=== PATIENT | female | born 1940 | race Two or more races ===

== ENCOUNTER → 2020-08-04 15:56 | Outpatient (BNVA) | payer MEDICARE, MEDICAID, SELFPAY | PROVIDERS: PCP Internal Medicine; Visit Provider Anesthesiology | DX: M47.816 Spondylosis without myelopathy or radiculopathy, lumbar region (principal); M25.50 Pain in unspecified joint; M17.0 Bilateral primary osteoarthritis of knee | CPT/HCPCS: 99213 ==

== ENCOUNTER 2020-08-05 08:10 | Outpatient (REF) | payer MEDICARE, MEDICAID, SELFPAY ==
--- NOTE | 2020-08-05 14:03 | FL_ITS ---
EXAMINATION: XR FLUOROSCOPY WITH IMAGES CLINICAL INFORMATION: M17.0 - Bilateral primary osteoarthritis of knee COMPARISON: None. TECHNIQUE: Fluoroscopy performed by Ilana Miles NP. Fluoroscopy time: 0.4 minutes DAP: 2.41 Gycm2 Images: 2 FINDINGS: There are 2 needles overlying mid aspect distal femur and single needle overlying mid aspect proximal tibia. There are degenerative changes knee joint and atherosclerotic calcifications vasculature. FL/FL guidance in treatment room IMPRESSION: Fluoroscopy for pain management procedure.
== END 2020-08-05 08:11 | disposition home or self-care (01) ==
LOC: HO.RADIR 08:10
PROVIDERS: Visit Provider Anesthesiology
DX: M17.0 Bilateral primary osteoarthritis of knee (principal)
CPT/HCPCS: 64454

== ENCOUNTER 2020-08-19 05:11 | Outpatient (REF) | payer MEDICARE, MEDICAID, SELFPAY ==
--- NOTE | 2020-08-19 13:08 | FL_ITS ---
EXAMINATION: XR FLUOROSCOPY WITH IMAGES CLINICAL INFORMATION: Spondylosis without myelopathy or radiculopathy COMPARISON: Prior procedure 08/05/2020 TECHNIQUE: Fluoroscopy performed by DESEAN Miles. Fluoroscopy time: 0.8 minutes DAP: 3.7 Gycm2 Images: 6 FINDINGS: Multiple intraoperative fluoroscopic spot radiographs demonstrate positioning of needles and injection of contrast along the neuroforamina at L4-5 and L5-S1 bilaterally. FL/FL guidance in treatment room IMPRESSION: Intraoperative fluoroscopic guidance as described above.
== END 2020-08-19 05:12 | disposition home or self-care (01) ==
LOC: HO.RADIR 05:11
PROVIDERS: Visit Provider Anesthesiology
DX: M17.0 Bilateral primary osteoarthritis of knee (principal); M47.816 Spondylosis without myelopathy or radiculopathy, lumbar region; G89.4 Chronic pain syndrome
CPT/HCPCS: 64454; J1200; J3300; Q9967

== ENCOUNTER → 2020-09-15 13:08 | Outpatient (BNVA) | payer MEDICARE, MEDICAID, SELFPAY | PROVIDERS: PCP Internal Medicine; Visit Provider Anesthesiology | DX: G89.4 Chronic pain syndrome (principal); M17.0 Bilateral primary osteoarthritis of knee; M47.816 Spondylosis without myelopathy or radiculopathy, lumbar region | CPT/HCPCS: 99212 ==

== ENCOUNTER → 2020-09-29 13:32 | Outpatient (BNVA) | payer MEDICARE, SELFPAY | PROVIDERS: PCP Internal Medicine; Visit Provider Anesthesiology | DX: M17.0 Bilateral primary osteoarthritis of knee (principal); G89.4 Chronic pain syndrome; M47.816 Spondylosis without myelopathy or radiculopathy, lumbar region | CPT/HCPCS: Q3014 ==

== ENCOUNTER → 2020-10-16 14:34 | Outpatient (BNVA) | payer MEDICARE, MEDICAID, SELFPAY | PROVIDERS: PCP Internal Medicine; Visit Provider Anesthesiology | DX: M47.816 Spondylosis without myelopathy or radiculopathy, lumbar region (principal); M17.0 Bilateral primary osteoarthritis of knee; G89.4 Chronic pain syndrome | CPT/HCPCS: 99212 ==

== ENCOUNTER → 2020-11-13 10:23 | Outpatient (BNVA) | payer MEDICARE, MEDICAID, SELFPAY | PROVIDERS: PCP Internal Medicine; Visit Provider Anesthesiology | DX: G89.4 Chronic pain syndrome (principal); N17.0 Acute kidney failure with tubular necrosis; M47.816 Spondylosis without myelopathy or radiculopathy, lumbar region; Z79.891 Long term (current) use of opiate analgesic | CPT/HCPCS: 99212 ==

== ENCOUNTER → 2020-12-11 15:50 | Outpatient (BNVA) | payer MEDICARE, MEDICAID, SELFPAY | PROVIDERS: PCP Internal Medicine; Visit Provider Anesthesiology | DX: M17.0 Bilateral primary osteoarthritis of knee (principal); M47.816 Spondylosis without myelopathy or radiculopathy, lumbar region; G89.4 Chronic pain syndrome; Z79.891 Long term (current) use of opiate analgesic | CPT/HCPCS: 99212 ==

== ENCOUNTER → 2021-02-05 10:43 | Outpatient (BNVA) | payer MEDICARE, MEDICAID, SELFPAY | PROVIDERS: PCP Internal Medicine; Visit Provider Anesthesiology | DX: M17.0 Bilateral primary osteoarthritis of knee (principal); G89.4 Chronic pain syndrome; M47.816 Spondylosis without myelopathy or radiculopathy, lumbar region | CPT/HCPCS: 99212 ==

== ENCOUNTER → 2021-03-04 10:35 | Outpatient (BNVA) | payer MEDICARE, MEDICAID, SELFPAY | PROVIDERS: PCP Internal Medicine; Visit Provider Nurse Practitioner Family | DX: M17.0 Bilateral primary osteoarthritis of knee (principal); M47.816 Spondylosis without myelopathy or radiculopathy, lumbar region; G89.4 Chronic pain syndrome | CPT/HCPCS: 99212 ==

== ENCOUNTER → 2021-04-01 08:19 | Outpatient (BNVA) | payer MEDICARE, MEDICAID, SELFPAY | PROVIDERS: PCP Internal Medicine; Visit Provider Nurse Practitioner Family | DX: M17.0 Bilateral primary osteoarthritis of knee (principal); M47.816 Spondylosis without myelopathy or radiculopathy, lumbar region; G89.4 Chronic pain syndrome | CPT/HCPCS: 99212 ==

== ENCOUNTER → 2021-05-13 10:34 | Outpatient (BNVA) | payer OTHER, SELFPAY | PROVIDERS: PCP Internal Medicine; Visit Provider Anesthesiology | DX: M17.0 Bilateral primary osteoarthritis of knee (principal); M47.816 Spondylosis without myelopathy or radiculopathy, lumbar region; G89.4 Chronic pain syndrome | CPT/HCPCS: 99212 ==

== ENCOUNTER 2021-06-02 07:45 | Outpatient (REF) | payer MEDICARE, MEDICAID, SELFPAY ==
--- NOTE | ~2021-06-02 | FL_ITS ---
EXAMINATION: XR FLUOROSCOPY WITH IMAGES CLINICAL INFORMATION: M17.0 - Bilateral primary osteoarthritis of knee COMPARISON: Fluoroscopy with images 08/05/2020 TECHNIQUE: Fluoroscopy performed by Ilana Miles NP. Fluoroscopy time: 0.2 minutes DAP: 1.57 Gycm2 Images: 2 FINDINGS: There are prominent osteophytic changes right knee greater lateral compartment with joint narrowing and subchondral sclerosis and osteophytes. Limestone/electrodes are seen overlying the medial and lateral side distal femur mid depth and also at the medial side proximal tibia mid depth. FL/FL guidance in treatment room IMPRESSION: Fluoroscopy for pain management procedure.
== END 2021-06-02 07:46 | disposition home or self-care (01) ==
LOC: HO.RADIR 07:45
PROVIDERS: Visit Provider Anesthesiology
DX: M17.0 Bilateral primary osteoarthritis of knee (principal); M47.816 Spondylosis without myelopathy or radiculopathy, lumbar region; G89.4 Chronic pain syndrome
CPT/HCPCS: 64624; J3300

== ENCOUNTER → 2021-06-10 10:47 | Outpatient (BNVA) | payer OTHER, SELFPAY | PROVIDERS: Visit Provider Anesthesiology | DX: M17.0 Bilateral primary osteoarthritis of knee (principal); M47.816 Spondylosis without myelopathy or radiculopathy, lumbar region; G89.4 Chronic pain syndrome; Z79.899 Other long term (current) drug therapy | CPT/HCPCS: 99212 ==

== ENCOUNTER → 2021-07-08 10:10 | Outpatient (BNVA) | payer MEDICARE, MEDICAID, SELFPAY | PROVIDERS: Visit Provider Anesthesiology | DX: Z51.81 Encounter for therapeutic drug level monitoring (principal); M17.0 Bilateral primary osteoarthritis of knee; M47.816 Spondylosis without myelopathy or radiculopathy, lumbar region; G89.4 Chronic pain syndrome | CPT/HCPCS: 99212 ==

== ENCOUNTER → 2021-08-05 13:39 | Outpatient (BNVA) | payer MEDICARE, SELFPAY | PROVIDERS: Visit Provider Anesthesiology | DX: Z51.81 Encounter for therapeutic drug level monitoring (principal); M17.0 Bilateral primary osteoarthritis of knee; M47.816 Spondylosis without myelopathy or radiculopathy, lumbar region; G89.4 Chronic pain syndrome | CPT/HCPCS: 99212 ==

== ENCOUNTER → 2021-08-31 11:41 | Outpatient (BNVA) | payer MEDICARE, MEDICAID, SELFPAY | PROVIDERS: Visit Provider Anesthesiology | DX: Z51.81 Encounter for therapeutic drug level monitoring (principal); M17.0 Bilateral primary osteoarthritis of knee; M47.816 Spondylosis without myelopathy or radiculopathy, lumbar region; G89.4 Chronic pain syndrome | CPT/HCPCS: 99212 ==

== ENCOUNTER → 2021-10-07 10:12 | Outpatient (BNVA) | payer MEDICARE, MEDICAID, SELFPAY | PROVIDERS: PCP Internal Medicine; Visit Provider Anesthesiology | DX: Z51.81 Encounter for therapeutic drug level monitoring (principal); F11.20 Opioid dependence, uncomplicated; M17.0 Bilateral primary osteoarthritis of knee; M47.816 Spondylosis without myelopathy or radiculopathy, lumbar region; G89.4 Chronic pain syndrome | CPT/HCPCS: 99212 ==

== ENCOUNTER → 2021-11-11 10:10 | Outpatient (BNVA) | payer MEDICARE, MEDICAID, SELFPAY | PROVIDERS: PCP Internal Medicine; Visit Provider Anesthesiology | DX: Z51.81 Encounter for therapeutic drug level monitoring (principal); F11.20 Opioid dependence, uncomplicated | CPT/HCPCS: 99212 ==

== ENCOUNTER → 2021-12-09 13:23 | Outpatient (BNVA) | payer MEDICARE, MEDICAID, SELFPAY | PROVIDERS: PCP Internal Medicine; Visit Provider Anesthesiology | DX: Z13.89 Encounter for screening for other disorder (principal) ==

== ENCOUNTER → 2022-01-06 12:48 | Outpatient (BNVA) | payer MEDICARE, MEDICAID, SELFPAY | PROVIDERS: PCP Internal Medicine; Visit Provider Anesthesiology | DX: Z51.81 Encounter for therapeutic drug level monitoring (principal); F11.20 Opioid dependence, uncomplicated | CPT/HCPCS: 99211 ==

== ENCOUNTER → 2022-02-03 12:49 | Outpatient (BNVA) | payer MEDICARE, MEDICAID, SELFPAY | PROVIDERS: PCP Internal Medicine; Visit Provider Anesthesiology | DX: Z51.81 Encounter for therapeutic drug level monitoring (principal); Z79.891 Long term (current) use of opiate analgesic | CPT/HCPCS: 99211 ==

== ENCOUNTER → 2022-03-04 10:17 | Outpatient (BNVA) | payer MEDICARE, MEDICAID, SELFPAY | PROVIDERS: PCP Internal Medicine; Visit Provider Anesthesiology | DX: Z51.81 Encounter for therapeutic drug level monitoring (principal); F11.20 Opioid dependence, uncomplicated | CPT/HCPCS: 99211 ==

== ENCOUNTER → 2022-04-01 10:29 | Outpatient (BNVA) | payer MEDICARE, MEDICAID, SELFPAY | PROVIDERS: PCP Internal Medicine; Visit Provider Anesthesiology | DX: G89.4 Chronic pain syndrome (principal); M17.0 Bilateral primary osteoarthritis of knee; M47.816 Spondylosis without myelopathy or radiculopathy, lumbar region; Z79.891 Long term (current) use of opiate analgesic | CPT/HCPCS: 99212 ==

== ENCOUNTER → 2022-05-05 10:40 | Outpatient (BNVA) | payer MEDICARE, MEDICAID, SELFPAY | PROVIDERS: PCP Internal Medicine; Visit Provider Anesthesiology | DX: Z51.81 Encounter for therapeutic drug level monitoring (principal); F11.20 Opioid dependence, uncomplicated | CPT/HCPCS: 99211 ==

== ENCOUNTER → 2022-06-02 11:24 | Outpatient (BNVA) | payer MEDICARE, MEDICAID, SELFPAY | PROVIDERS: PCP Internal Medicine; Visit Provider Anesthesiology | DX: G89.4 Chronic pain syndrome (principal); M17.0 Bilateral primary osteoarthritis of knee; M47.816 Spondylosis without myelopathy or radiculopathy, lumbar region; Z79.891 Long term (current) use of opiate analgesic | CPT/HCPCS: 99212 ==

== ENCOUNTER → 2022-06-23 11:26 | Outpatient (BNVA) | payer MEDICARE, MEDICAID, SELFPAY | PROVIDERS: PCP Internal Medicine; Visit Provider Anesthesiology | DX: Z51.81 Encounter for therapeutic drug level monitoring (principal); F11.20 Opioid dependence, uncomplicated | CPT/HCPCS: 99211 ==

== ENCOUNTER → 2022-07-21 12:47 | Outpatient (BNVA) | payer MEDICARE, MEDICAID, SELFPAY | PROVIDERS: PCP Internal Medicine; Visit Provider Anesthesiology | DX: Z51.81 Encounter for therapeutic drug level monitoring (principal); Z79.899 Other long term (current) drug therapy | CPT/HCPCS: 99211 ==

== ENCOUNTER → 2022-08-25 11:12 | Outpatient (BNVA) | payer MEDICARE, MEDICAID, SELFPAY | PROVIDERS: PCP Internal Medicine; Visit Provider Anesthesiology | DX: Z51.81 Encounter for therapeutic drug level monitoring (principal); F11.20 Opioid dependence, uncomplicated | CPT/HCPCS: 99211 ==

== ENCOUNTER → 2022-10-06 10:48 | Outpatient (BNVA) | payer MEDICARE, MEDICAID, SELFPAY | PROVIDERS: PCP Internal Medicine; Visit Provider Anesthesiology | DX: Z51.81 Encounter for therapeutic drug level monitoring (principal); F11.20 Opioid dependence, uncomplicated; M17.0 Bilateral primary osteoarthritis of knee; M47.816 Spondylosis without myelopathy or radiculopathy, lumbar region; G89.4 Chronic pain syndrome | CPT/HCPCS: 99212 ==

== ENCOUNTER → 2022-11-05 10:47 | Outpatient (BNVA) | payer MEDICARE, MEDICAID, SELFPAY | PROVIDERS: PCP Internal Medicine; Visit Provider Nurse Practitioner Family | DX: Z51.81 Encounter for therapeutic drug level monitoring (principal); F11.20 Opioid dependence, uncomplicated; M17.0 Bilateral primary osteoarthritis of knee; M47.816 Spondylosis without myelopathy or radiculopathy, lumbar region; G89.4 Chronic pain syndrome; Z98.890 Other specified postprocedural states | CPT/HCPCS: 99212 ==

== ENCOUNTER → 2022-12-03 13:50 | Outpatient (BNVA) | payer MEDICARE, MEDICAID, SELFPAY | PROVIDERS: PCP Internal Medicine; Visit Provider Nurse Practitioner Family | DX: G89.4 Chronic pain syndrome (principal); M47.816 Spondylosis without myelopathy or radiculopathy, lumbar region; M17.0 Bilateral primary osteoarthritis of knee; Z79.891 Long term (current) use of opiate analgesic | CPT/HCPCS: 99212 ==

== ENCOUNTER → 2022-12-31 12:48 | Outpatient (BNVA) | payer MEDICARE, MEDICAID, SELFPAY | PROVIDERS: PCP Internal Medicine; Visit Provider Nurse Practitioner Family ==

== ENCOUNTER → 2023-01-31 11:13 | Outpatient (BNVA) | payer MEDICARE, MEDICAID, SELFPAY | PROVIDERS: PCP Internal Medicine; Visit Provider Nurse Practitioner Family | DX: Z51.81 Encounter for therapeutic drug level monitoring (principal); F11.20 Opioid dependence, uncomplicated; M81.0 Age-related osteoporosis without current pathological fracture; M17.0 Bilateral primary osteoarthritis of knee; M47.816 Spondylosis without myelopathy or radiculopathy, lumbar region; M25.50 Pain in unspecified joint; M25.512 Pain in left shoulder; G89.4 Chronic pain syndrome | CPT/HCPCS: 99212 ==

== ENCOUNTER → 2023-02-28 10:56 | Outpatient (BNVA) | payer MEDICARE, MEDICAID, SELFPAY | PROVIDERS: PCP Internal Medicine; Visit Provider Nurse Practitioner Family | DX: G89.4 Chronic pain syndrome (principal); M17.0 Bilateral primary osteoarthritis of knee; M47.816 Spondylosis without myelopathy or radiculopathy, lumbar region; M25.512 Pain in left shoulder; M81.0 Age-related osteoporosis without current pathological fracture; Z79.891 Long term (current) use of opiate analgesic | CPT/HCPCS: 99212 ==

== ENCOUNTER → 2023-03-21 08:23 | Outpatient (BNVA) | payer MEDICARE, MEDICAID, SELFPAY | PROVIDERS: PCP Internal Medicine; Visit Provider Nurse Practitioner Family | DX: M48.061 Spinal stenosis, lumbar region without neurogenic claudication (principal); M43.16 Spondylolisthesis, lumbar region; M51.36 Other intervertebral disc degeneration, lumbar region; G89.4 Chronic pain syndrome | CPT/HCPCS: 99212 ==

== ENCOUNTER → 2023-03-28 09:41 | Outpatient (BNVA) | payer MEDICARE, MEDICAID, SELFPAY | PROVIDERS: PCP Internal Medicine; Visit Provider Physician Assistant | DX: M43.16 Spondylolisthesis, lumbar region (principal) | CPT/HCPCS: 99202 ==

== ENCOUNTER 2023-04-19 13:00 | Outpatient (REF) | payer MEDICARE, MEDICAID, SELFPAY ==
--- NOTE | ~2023-04-19 | XR_ITS ---
Examination: X-ray knee, bilateral INDICATION: Bilateral primary osteoarthritis of knee COMPARISON: None available TECHNIQUE: 3 views of the bilateral knees FINDINGS: There are advanced tricompartmental degenerative changes bilaterally with marked cartilage space narrowing and bulky osteophyte formation. No displaced fracture appreciated. Bones are demineralized. Extensive vascular calcifications. XR/XR knee LT 3V IMPRESSION: 1. Advanced bilateral tricompartmental degenerative changes. 2. Extensive vascular calcifications.
--- NOTE | ~2023-04-19 | XR_ITS ---
Examination: X-ray knee, bilateral INDICATION: Bilateral primary osteoarthritis of knee COMPARISON: None available TECHNIQUE: 3 views of the bilateral knees FINDINGS: There are advanced tricompartmental degenerative changes bilaterally with marked cartilage space narrowing and bulky osteophyte formation. No displaced fracture appreciated. Bones are demineralized. Extensive vascular calcifications. XR/XR knee RT 3V IMPRESSION: 1. Advanced bilateral tricompartmental degenerative changes. 2. Extensive vascular calcifications.
== END 2023-04-19 13:01 | disposition home or self-care (01) ==
LOC: HO.XRAY 13:00
PROVIDERS: PCP Internal Medicine; Visit Provider Nurse Practitioner Family
DX: M17.0 Bilateral primary osteoarthritis of knee (principal); M25.50 Pain in unspecified joint; M48.061 Spinal stenosis, lumbar region without neurogenic claudication; G89.4 Chronic pain syndrome
CPT/HCPCS: 73562; 99212

== ENCOUNTER 2023-04-19 13:00 | Outpatient (AMB) | payer MEDICARE, MEDICAID, SELFPAY ==
--- NOTE | 2023-04-19 12:55 | MHC.OFFVIS ---
Intake Vital Signs 04/19/23 13:07 Height 4 ft 11 in BMI Reason not done Patient refused/unable BP 131/62 Blood Pressure Location Lt brachial Position Sitting Pulse 84 Pulse Source Pulse Oximeter Pulse Oximetry (%) 97 Oxygen Delivery Method Room Air Intake Visit Reasons: Injection Discussion Intake Note: Pain today 01/17 Youth Officer Required: Yes Youth Officer Language: Assisted Living Coordinator Name: daughter Accompanied by: Daughter Allergies amoxicillin Allergy (Unknown, Verified 04/19/23 13:08) UNKNOWN atenolol Allergy (Unknown, Verified 04/19/23 13:08) unknown azithromycin Allergy (Unknown, Verified 04/19/23 13:08) unknwon levofloxacin Allergy (Unknown, Verified 04/19/23 13:08) Unknown nitrofurantoin Allergy (Unknown, Verified 04/19/23 13:08) unknown HPI HPI Comments History of Present Illness Details Patient presents today for follow up regarding bilateral knee pain due to advancing osteoarthritis. Patient reports increasing bilateral knee pain with walking, climbing stairs or bending her knees, right worse than left. Family reports patient was seen by Orthopedic provider in the past and was told her knees are bone on bone but declined knee replacement and received cortisone injections with good results. She is not interested to undergo knee surgery at this time. Patient cannot tolerate physical therapy due to significant pain. She has been alternating heat and ice packs with minimal relief. We discussed risks and benefits of genicular radiofrequency ablation and peripheral nerve stimulation for bilateral anterior knee pain. Patient's family demonstrated adequate understanding of a potential peripheral nerve stimulation device placement, maintenance and operation and will assist patient with weekly dressing changes during Sprint trial period. I will schedule patient for bilateral diagnostic nerve blocks starting with right knee first. Patient was also recently was seen by [facility] providers and is planning to undergo a right L5 foraminotomy sometimes in May, pending medical and cardiac clearances. Denies any fever, bowel or bladder incontinence, or saddle anesthesia. PRIOR: Patient presents today for follow up for worsening low back pain with bilateral radiculopathy in L4-L5 distribution. She reports significant numbness and occasional tingling in both feet, right worse than left. back and legs pain increases with walking or standing for less than 5 minutes. She has to sit down to alleviate her pain but also noticed increased pain with prolonged sitting and has to change her positioning frequently. Patient utilizes walker with seat and has decreased mobility due to significant pain. Patient's daughter is present during visit and translates per patient's request. She states patient was seen at [facility] early February for sciatica symptoms and had no relief with oral prednisone. Patient had pill count visit with our office on 02/28/23 and returned to [facility] on 03/03/23. Per [facility] review, patient filled script for Fentanyl 25 mcg patch on 03/03/23. Unfortunately, this demonstrates an irresponsible attitude towards her medication regimen and opioid contract. This has been reviewed with family and patient. We reviewed patient's contract and opioid risk assessment as of 04/2020. Given her opioid risk is moderate, she will be suspended from our opioid program for one year. Patient is aware that she will not be eligible for medical management through this office until 04/18/24. Patient is also aware that she can receive alternative treatment options, such as non-opioid medications and interventional treatments. I will extend her compassionate prescription for 4 instead of 2 weeks for Vicodin. We discussed withdrawal symptoms and available medications for symptomatic relief. Patient's family also reports that patient feels very weak and drowsy on Fentanyl patch and they had to cut patch in half to avoid. For acute low back pain with spinal stenosis and spondylisthesis related pain, we will proceed with urgent neurosurgical evaluation with our colleagues at [facility]. Request sent to [facility] for recent lumbar spine MRI results. She denies any fever, bladder or bowel incontinence or saddle anesthesia. PRIOR 02/28/23: Patient is pleasant 82 years old Hebrew speaking female who presents today for a pill count. She is accompanied by her daughter. Patient is supposed to have #51 pills, in her possession has #62 pills. This demonstrates a responsible attitude in regards to the medication regimen. Patient reports inadequate pain relief on her regimen of hydrocodone-acetaminophen 5-325 TID prn. She continues to endorse multiple joint pain, shoulders and knees. Denies any fever, bowel or bladder incontinence, or saddle anesthesia. Per family, patient went to [facility] for right sided sciatica symptoms and was started on prednisone taper. Lumbar spine xrays from [facility] are not available today. She reports weakness in her right lower extremity with positive seated SLR testing worsened with dorsiflexion. Patient also reports return of right knee pain, with localized tenderness in lateral and medial aspects of right knee. There is mild left anterior knee pain as well. Radicular pain and right knee pain increases with walking or climbing stairs. Patient had right genicular RFA [place] [address] Villanueva and previously underwent multiple injections for spine and joints by Dr. Gleason. Patient and family are interested to discuss Sprint PNS options. I will book her for diagnostic saphenous nerve block. REPLACED BY [facility] Medical History Bilateral primary osteoarthritis of knee Chronic pain syndrome Osteoporosis Pain in unspecified joint Spondylosis without myelopathy or radiculopathy, lumbar region Surgical History Status post carotid endarterectomy Review of Systems Const All systems reviewed & are unremarkable except as noted in HPI and below Physical Exam Vital Signs: Last Vital Signs Pulse 84 04/19/23 13:07 BP 131/62 04/19/23 13:07 Pulse Ox 97 04/19/23 13:07 Oxygen Delivery Method Room Air 04/19/23 13:07 General: Appears afebrile. Alert and oriented. Mood and affect appropriate. Follows and participates in conversation appropriately. Respiratory effort is unlabored. No cough. Able to transition from sit to stand with assistance of family. Uses walker with seat with ambulation. Ambulates with slow, antalgic gait. Mild limping. Extrem General: Yes capillary refill normal, Yes no clubbing, cyanosis or edema and Yes no calf tenderness Right lower extremity: knee (Limited ROM due to pain.) Details: tenderness Location: of the patella, of the medial joint line and of the lateral joint line and crepitus; no swelling, no ecchymosis and no unusual warmth Left lower extremity: knee (Limited ROM due to pain.) Details: tenderness Location: of the patella, of the medial joint line and of the lateral joint line and crepitus; no swelling, no ecchymosis and no unusual warmth Assessment & Plan Assessment & Plan (1) Bilateral primary osteoarthritis of knee: Code(s): M17.0 - Bilateral primary osteoarthritis of knee (2) Bilateral knee pain: Code(s): M25.561 - Pain in right knee; M25.562 - Pain in left knee (3) Polyarthralgia: Code(s): M25.50 - Pain in unspecified joint (4) Spinal stenosis at L4-L5 level: Code(s): M48.061 - Spinal stenosis, lumbar region without neurogenic claudication (5) Chronic pain syndrome: Code(s): G89.4 - Chronic pain syndrome Plan 1. Bilateral knee xray to assess degree of arthritis. 2. Scripts provided today for localized anterior knee pain, diclofenac gel and lidocaine patches. 3. Schedule Right and Left saphenous nerve blocks at the level of the adductor with local and US guidance for potential Sprint PNS trial. We will start with right knee first. We also discussed genicular RFA as a back option. Patient's family demonstrated adequate understanding of a potential peripheral nerve stimulation device placement, maintenance and operation and will assist patient with weekly dressing changes during Sprint trial period. All questions were answered and patient and family agreed with the plan. Follow up after injections and sooner if needed. Justification for interventional therapy: ? Patient with average pain > 6/10 ? Patient has exhausted conservative therapy The risks, consequences, alternatives, and benefits of various treatment options were discussed with the patient in great detail, including conservative management, injections and procedures. Orders: Orders XR knee LT 3V 04/19/23 M17.0 - Bilateral primary osteoarthritis of knee, M25.561 - Pain in right knee, M25.562 - Pain in left knee XR knee RT 3V 04/19/23 M17.0 - Bilateral primary osteoarthritis of knee, M25.561 - Pain in right knee, M25.562 - Pain in left knee Medications: New diclofenac sodium 1% (Arthritis Pain (diclofenac)) apply to single knee, ankle, foot; for foot includes sole/toes/top of foot 4 grams topical QID 100 grams 3RF pain M17.0 - Bilateral primary osteoarthritis of knee, M25.50 - Pain in unspecified joint, M25.561 - Pain in right knee, M25.562 - Pain in left knee lidocaine 5% 2 patches topical DAILY 30 ea 2RF pain M17.0 - Bilateral primary osteoarthritis of knee, M25.561 - Pain in right knee, M25.562 - Pain in left knee Discontinued hydrocodone-acetaminophen 5-325 mg Please use this prescription to taper off medication, four week compassionate prescription. Discontinued Reason: Patient Completed Course 1 tab PO Q8H 30 days PRN 90 tabs 0RF pain G89.4 - Chronic pain syndrome, M17.0 - Bilateral primary osteoarthritis of knee, M47.816 - Spondylosis without myelopathy or radiculopathy, lumbar region, M48.061 - Spinal stenosis, lumbar region without neurogenic claudication Coding Level of Care Code Est Pt Level 4 (24774) Diagnoses Bilateral primary osteoarthritis of knee M17.0 Bilateral knee pain M25.561; M25.562 Polyarthralgia M25.50 Spinal stenosis at L4-L5 level M48.061 Chronic pain syndrome G89.4
[2023-04-19 13:07] VITALS: BP 131/62; PULSE 84; O2SAT 97
== END 2023-04-19 13:24 | disposition home or self-care (01) ==
PROVIDERS: PCP Internal Medicine; Visit Provider Nurse Practitioner Family
DX: M17.0 Bilateral primary osteoarthritis of knee (principal); M25.50 Pain in unspecified joint; G89.4 Chronic pain syndrome; M48.061 Spinal stenosis, lumbar region without neurogenic claudication; M25.562 Pain in left knee; M25.561 Pain in right knee
CPT/HCPCS: 99214

== ENCOUNTER 2023-05-06 10:47 | Outpatient (AMB) | payer MEDICARE, MEDICAID, SELFPAY ==
[2023-05-06 10:51] VITALS: BP 136/60; PULSE 82; RESP 14; BMI 26.3
--- NOTE | 2023-05-06 10:51 | A.OFFVIS_ITS ---
Intake Vital Signs 05/06/23 10:51 Height 4 ft 11 in Weight 130 lb BMI 26.3 BP 136/60 Blood Pressure Location Lt brachial Position Sitting Respiration 14 Pulse 82 Pulse Source Pulse Oximeter Intake Visit Reasons: RIGHT SNB UNDER ULTRASOUND Allergies amoxicillin Allergy (Intermediate, Verified 05/16/23 09:00) Swelling azithromycin Allergy (Intermediate, Verified 05/16/23 09:00) Itching levofloxacin Allergy (Intermediate, Verified 05/16/23 09:00) Itching nitrofurantoin Allergy (Intermediate, Verified 05/16/23 09:00) Itching atenolol Allergy (Unknown, Verified 05/16/23 09:00) unknown reaction per daughter HPI RIGHT SNB UNDER ULTRASOUND HPI Details 82-year-old female presenting today for a right SNB under US guidance, referred by Lisbet SANTAMARIA. Denies any recent cough, cold, infection, fever or other significant changes in medical history since last office visit. [facility] Medical History (Updated 05/16/23 @ 11:03 by Neto Bai MD) Anxiety Asthma Back pain Bilateral primary osteoarthritis of knee Cerebral aneurysm Chronic pain syndrome COPD (chronic obstructive pulmonary disease) CVA (cerebral vascular accident) Diabetes Elevated cholesterol GERD (gastroesophageal reflux disease) HTN (hypertension) Myocardial infarction Osteoporosis Pain in unspecified joint Spondylosis without myelopathy or radiculopathy, lumbar region Surgical History (Updated 05/16/23 @ 09:00 by ANTON Shukla) H/O colonoscopy History of esophagogastroduodenoscopy (EGD) Hx of bilateral cataract extraction Hx of cholecystectomy Status post carotid endarterectomy Social History (Updated 05/16/23 @ 08:59 by ANTON Shukla) Household Members: None Are you a primary customer care representative to a significant other at home: No Do you presently have visiting nurse or other home services: Yes ([employer]) Patient Tobacco Use Status: Current everyday Tobacco user Tobacco use type: Cigarette Cigarettes Per Day: 20 Years Smoked: 50 Review of Systems Const All systems reviewed & are unremarkable except as noted in HPI and below Physical Exam Vital Signs: Last Vital Signs Pulse 82 05/06/23 10:51 Resp 14 05/06/23 10:51 BP 136/60 05/06/23 10:51 BMI result Body Mass Index 26.3 General: Appears afebrile. Alert and oriented. Mood and affect appropriate. Follows and participates in conversation appropriately. Respiratory effort is unlabored. Able to transition from sit to stand unassisted. Ambulates with bilaterally normal heel strike and toe off. Office Procedures Nerve Block Details: Right saphenous nerve block under US guidance. After obtaining written consent, pre-procedure blood pressure and heart rate were stable and recorded in the nursing record. The patient was placed supine on the table. The medial thigh area overlying the adductor canal was widely prepped with chloraprep, allowed to dry and sterilely draped. Using ultrasound, the appropriate landmarks including the femoral artery and saphenous nerve were identified. The skin overlying the target was anesthetized with 0.5% lidocaine. A 21 gauge 100 mm echostim needle was advanced under sonographic guidance to the adductor canal. Aspiration was negative for heme and synovial fluid. 10 cc of lidocaine 1% was injected around the saphenous nerve. The needles were removed, skin cleansed and a sterile bandage was applied. The patient tolerated the procedure well and no complications were encountered. Following the procedure the patient's vital signs and knee strength were stable. The patient was discharged home in good condition with post-procedural instructions. Time Out: Immediately prior to the procedure, the following was verbally confirmed that there is a signed consent form and that the correct patient, planned procedure, site and side are consistent with documentation and that n ecessary equipment and/or blood products are available prior to the start of the case. Complications: none EBL: <1 cc 15984 - Saphenous (Right ) Procedure code (CPT) selection complete Results Reviewed Results Reviewed: 05/06/23 09:00 Lidocaine HCl 2 % MPF [Xylocaine 2 % MPF] 5 ml .ROUTE .STK-MED ONE No imaging is available for review. Assessment & Plan Assessment & Plan (1) Osteoarthritis of knees, bilateral: Code(s): M17.0 - Bilateral primary osteoarthritis of knee Plan Patient is status post right saphenous nerve blocks at the level of the adductor canal under US guidance. Patient tolerated procedure well and was discharged home in stable condition with discharge instructions. All questions were answered. We will follow-up in two weeks via telephone or in clinic to assess response to therapy. A follow-up appointment was made during today's visit. Scribed for Dr. Iverson by David Jaun, medical service technician, on 05/06/2023. I, Dr. Fermin rush, have personally reviewed and agree with the information entered by the scribe. Medications: Discontinued gabapentin 100 mg PO TID 30 days 90 caps 8RF Coding Level of Care Code Procedure Only Diagnoses Osteoarthritis of knees, bilateral M17.0 CPT Codes Nerve Block - Nerve Block 10: 16047 - Saphenous ([id number])
== END 2023-05-06 11:30 | disposition home or self-care (01) ==
PROVIDERS: PCP Internal Medicine; Visit Provider Internal Medicine
DX: M17.0 Bilateral primary osteoarthritis of knee (principal)
CPT/HCPCS: 64447

== ENCOUNTER → 2023-05-06 10:47 | Outpatient (BNVA) | payer MEDICARE, MEDICAID, SELFPAY | PROVIDERS: PCP Internal Medicine; Visit Provider Internal Medicine | DX: M17.0 Bilateral primary osteoarthritis of knee (principal) | CPT/HCPCS: 64447 ==

== ENCOUNTER 2023-05-13 11:03 | Outpatient (AMB) | payer MEDICARE, MEDICAID, SELFPAY ==
--- NOTE | 2023-05-13 11:21 | A.OFFVIS_ITS ---
Intake Intake Visit Reasons: LEFT SNB UNDER ULTRASOUND Allergies amoxicillin Allergy (Intermediate, Verified 05/16/23 09:00) Swelling azithromycin Allergy (Intermediate, Verified 05/16/23 09:00) Itching levofloxacin Allergy (Intermediate, Verified 05/16/23 09:00) Itching nitrofurantoin Allergy (Intermediate, Verified 05/16/23 09:00) Itching atenolol Allergy (Unknown, Verified 05/16/23 09:00) unknown reaction per daughter HPI LEFT SNB UNDER ULTRASOUND HPI Details 82-year-old female presenting today for a left SNB injection under ultrasound guidance. Denies any recent cough, cold, infection, fever or other significant changes in medical history since last office visit. [facility] Medical History (Updated 05/16/23 @ 11:03 by Neto Bai MD) Anxiety Asthma Back pain Bilateral primary osteoarthritis of knee Cerebral aneurysm Chronic pain syndrome COPD (chronic obstructive pulmonary disease) CVA (cerebral vascular accident) Diabetes Elevated cholesterol GERD (gastroesophageal reflux disease) HTN (hypertension) Myocardial infarction Osteoporosis Pain in unspecified joint Spondylosis without myelopathy or radiculopathy, lumbar region Surgical History (Updated 05/16/23 @ 09:00 by ANTON Shukla) H/O colonoscopy History of esophagogastroduodenoscopy (EGD) Hx of bilateral cataract extraction Hx of cholecystectomy Status post carotid endarterectomy Social History (Updated 05/16/23 @ 08:59 by ANTON Shukla) Household Members: None Are you a primary day care teacher to a significant other at home: No Do you presently have visiting nurse or other home services: Yes ([employer]) Patient Tobacco Use Status: Current everyday Tobacco user Tobacco use type: Cigarette Cigarettes Per Day: 20 Years Smoked: 50 Review of Systems Const All systems reviewed & are unremarkable except as noted in HPI and below Physical Exam General: Appears afebrile. Alert and oriented. Mood and affect appropriate. Follows and participates in conversation appropriately. Respiratory effort is unlabored. Able to transition from sit to stand unassisted. Ambulates with bilaterally normal heel strike and toe off. Office Procedures Nerve Block Details: Left saphenous nerve block under US guidance After obtaining written consent, pre-procedure blood pressure and heart rate were stable and recorded in the nursing record. The patient was placed supine on the table. The medial thigh area overlying the adductor canal was widely prepped with chloraprep, allowed to dry and sterilely draped. Using ultrasound, the appropriate landmarks including the femoral artery and saphenous nerve were identified. The skin overlying the target was anesthetized with 0.5% lidocaine. A 21 gauge 100 mm echostim needle was advanced under sono graphic guidance to the adductor canal. Aspiration was negative for heme and synovial fluid. 10 cc of lidocaine 1% was injected around the saphenous nerve. The needles were removed, skin cleansed and a sterile bandage was applied. The patient tolerated the procedure well and no complications were encountered. Following the procedure the patient's vital signs and knee strength were stable. The patient was discharged home in good condition with post-procedural instructions. Time Out: Immediately prior to the procedure, the following was verbally confirmed that there is a signed consent form and that the correct patient, planned procedure, site and side are consistent with documentation and that necessary equipment and/or blood products are available prior to the start of the case. Complications: none EBL: <1 cc 81239 - Saphenous (Left) Procedure code (CPT) selection complete Results Reviewed Results Reviewed: No imaging is available for review. Assessment & Plan Assessment & Plan (1) Osteoarthritis of knees, bilateral: Code(s): M17.0 - Bilateral primary osteoarthritis of knee Plan Patient is status post left saphenous nerve block at the level of the adductor u nder US guidance. Patient tolerated procedure well and was discharged home in stable condition with discharge instructions. All questions were answered. We will follow-up in two weeks via telephone or in clinic to assess response to therapy. A follow-up appointment was made during today's visit. Scribed for Dr. Iverson by David Zamorano, director of medical review, on 05/13/2023. I, Dr. Iverson, have personally reviewed and agree with the information entered by the scribe. Medications: Discontinued gabapentin 100 mg PO TID 30 days 90 caps 8RF Coding Level of Care Code Procedure Only Diagnoses Osteoarthritis of knees, bilateral M17.0 CPT Codes Nerve Block - Nerve Block 10: 32175 - Saphenous ([id number])
== END 2023-05-13 11:21 | disposition home or self-care (01) ==
PROVIDERS: PCP Internal Medicine; Visit Provider Internal Medicine
DX: M17.0 Bilateral primary osteoarthritis of knee (principal)
CPT/HCPCS: 64450

== ENCOUNTER → 2023-05-13 11:03 | Outpatient (BNVA) | payer MEDICARE, MEDICAID, SELFPAY | PROVIDERS: PCP Internal Medicine; Visit Provider Internal Medicine | DX: M17.0 Bilateral primary osteoarthritis of knee (principal) | CPT/HCPCS: 64450 ==

== ENCOUNTER 2023-05-16 08:13 | Outpatient (AMB) | payer MEDICARE, MEDICAID, SELFPAY ==
--- NOTE | 2023-05-16 08:20 | A.OFFVIS_ITS ---
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 Mill Operator Name: daughter Accompanied by: Daughter Allergies amoxicillin Allergy (Intermediate, Verified 05/16/23 09:00) Swelling azithromycin Allergy (Intermediate, Verified 05/16/23 09:00) Itching levofloxacin Allergy (Intermediate, Verified 05/16/23 09:00) Itching nitrofurantoin Allergy (Intermediate, Verified 05/16/23 09:00) Itching atenolol Allergy (Unknown, Verified 05/16/23 09:00) unknown reaction per daughter HPI HPI Comments History of Present Illness Details Patient presents today to assess response to Bilateral Saphenous nerve blocks right side on 05/06/23 and left side on 05/13/[address] Iverson. Patient reports injections were helpful and she continuous to feel some relief today on the left but significant pain in right knee. Per family and patient, patient had 70% pain relief for 24 hours on the right and 75% pain relief for >48 hours on the left. Patient is interested to proceed with peripheral nerve stimulation with Sprint trial, starting with the right knee and followed by the knee. She is requesting this to be scheduled after her back surgery, right L5 foraminotomy, on 05/26/[address] Aguayo. She continues to endorse significant low back pain with right leg pain with associated numbness and tingling and right lateral and dorsal foot pain. Patient reports she is also seeing Rheumatology provider this morning regarding her multiple joint pain. Denies any recent cough, cold, infection, fever or other significant changes in medical history since last office visit. Patient denies any bladder or bowel incontinence or saddle anesthesia. PRIOR: Patient presents today for follow up regarding bilateral knee pain due to advancing osteoarthritis. Patient reports increasing bilateral knee pain with walking, climbing stairs or bending her knees, right worse than left. Family reports patient was seen by Orthopedic provider in the past and was told her knees are bone on bone but declined knee replacement and received cortisone injections with good results. She is not interested to undergo knee surgery at this time. Patient cannot tolerate physical therapy due to significant pain. She has been alternating heat and ice packs with minimal relief. We discussed risks and benefits of genicular radiofrequency ablation and peripheral nerve stimulation for bilateral anterior knee pain. Patient's family demonstrated adequate understanding of a potential peripheral nerve stimulation device placement, maintenance and operation and will assist patient with weekly dressing changes during Sprint trial period. I will schedule patient for bilateral diagnostic nerve blocks starting with right knee first. Patient was also recently was seen by [facility] providers and is planning to undergo a right L5 foraminotomy sometimes in May, pending medical and cardiac clearances. Denies any fever, bowel or bladder incontinence, or saddle anesthesia. PRIOR: Patient presents today for follow up for worsening low back pain with bilateral radiculopathy in L4-L5 distribution. She reports significant numbness and occasional tingling in both feet, right worse than left. back and legs pain increases with walking or standing for less than 5 minutes. She has to sit down to alleviate her pain but also noticed increased pain with prolonged sitting and has to change her positioning frequently. Patient utilizes walker with seat and has decreased mobility due to significant pain. Patient's daughter is present during visit and translates per patient's request. She states patient was seen at [facility] early February for sciatica symptoms and had no relief with oral prednisone. Patient had pill count visit with our office on 02/28/23 and returned to [facility] on 03/03/23. Per [facility] review, patient filled script for Fentanyl 25 mcg patch on 03/03/23. Unfortunately, this demonstrates an irresponsible attitude towards her medication regimen and opioid contract. This has been reviewed with family and patient. We reviewed patient's contract and opioid risk assessment as of 04/2020. Given her opioid risk is moderate, she will be suspended from our opioid program for one year. Patient is aware that she will not be eligible for medical management through this office until 04/18/24. Patient is also aware that she can receive alternative treatment options, such as non-opioid medications and interventional treatments. I will extend her compassionate prescription for 4 instead of 2 weeks for Vicodin. We discussed withdrawal symptoms and available medications for symptomatic relief. Patient's family also reports that patient feels very weak and drowsy on Fentanyl patch and they had to cut patch in half to avoid. For acute low back pain with spinal stenosis and spondylisthesis related pain, we will proceed with urgent neurosurgical evaluation with our colleagues at [facility]. Request sent to [facility] for recent lumbar spine MRI results. She denies any fever, bladder or bowel incontinence or saddle anesthesia. PRIOR 02/28/23: Patient is pleasant 82 years old Czech speaking female who presents today for a pill count. She is accompanied by her daughter. Patient is supposed to have #51 pills, in her possession has #62 pills. This demonstrates a responsible attitude in regards to the medication regimen. Patient reports inadequate pain relief on her regimen of hydrocodone-acetaminophen 5-325 TID prn. She continues to endorse multiple joint pain, shoulders and knees. Denies any fever, bowel or bladder incontinence, or saddle anesthesia. Per family, patient went to [facility] ER for right sided sciatica symptoms and was started on prednisone taper. Lumbar spine xrays from [facility] are not available today. She reports weakness in her right lower extremity with positive seated SLR testing worsened with dorsiflexion. Patient also reports return of right knee pain, with localized tenderness in lateral and medial aspects of right knee. There is mild left anterior knee pain as well. Radicular pain and right knee pain increases with walking or climbing stairs. Patient had right genicular RFA [place] [address] Villanueva and previously underwent multiple injections for spine and joints by Dr. Gleason. Patient and family are interested to discuss Sprint PNS options. I will book her for diagnostic saphenous nerve block. [facility] Medical History (Updated 05/16/23 @ 11:03 by Neto Bai MD) Anxiety Asthma Back pain Bilateral primary osteoarthritis of knee Cerebral aneurysm Chronic pain syndrome COPD (chronic obstructive pulmonary disease) CVA (cerebral vascular accident) Diabetes Elevated cholesterol GERD (gastroesophageal reflux disease) HTN (hypertension) Myocardial infarction Osteoporosis Pain in unspecified joint Spondylosis without myelopathy or radiculopathy, lumbar region Surgical History (Updated 05/16/23 @ 09:00 by ANTON Shukla) H/O colonoscopy History of esophagogastroduodenoscopy (EGD) Hx of bilateral cataract extraction Hx of cholecystectomy Status post carotid endarterectomy Social History (Updated 05/16/23 @ 08:59 by ANTON Shukla) Household Members: None Are you a primary career coach to a significant other at home: No Do you presently have visiting nurse or 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 Alert and oriented. Mood and affect appropriate. Follows and participates in conversation appropriately. Respiratory effort is unlabored. Able to transition from sit to stand with assistance of walker. Extrem Right lower extremity: knee (Limited ROM, pain with flexion and extension) Detai ls: tenderness Location: of the patella and of the medial joint line and crepitus; no swelling, no ecchymosis and no unusual warmth Left lower extremity: knee (Limited ROM, pain with flexion) Details: tenderness Location: of the patella and of the medial joint line and crepitus; no ecchymosis and no unusual warmth Results Reviewed Results Reviewed: X-ray knee, bilateral 04/19/23 INDICATION: Bilateral primary osteoarthritis of knee FINDINGS: There are advanced tricompartmental degenerative changes bilaterally with marked cartilage space narrowing and bulky osteophyte formation. No displaced fracture appreciated. Bones are demineralized. Extensive vascular calcifications. IMPRESSION: 1. Advanced bilateral tricompartmental degenerative changes. 2. Extensive vascular calcifications. Assessment & Plan Assessment & Plan (1) Bilateral primary osteoarthritis of knee: Code(s): M17.0 - Bilateral primary osteoarthritis of knee (2) Bilateral knee pain: Code(s): M25.561 - Pain in right knee; M25.562 - Pain in left knee (3) Polyarthralgia: Code(s): M25.50 - Pain in unspecified joint (4) Spinal stenosis at L4-L5 level: Code(s): M48.061 - Spinal stenosis, lumbar region without neurogenic claudication (5) Chronic pain syndrome: Code(s): G89.4 - Chronic pain syndrome Plan 1. Bilateral knee xray is noted for advanced bilateral tricompartmental degenerative changes. Patient is not interested in surgery. 2. Bilateral SNB provided patient 70-75% pain relief for 24-48 hours. She is scheduled for right L5 foraminotomy, on 05/26/[address] Aguayo.?She will proceed with with Right Saphenous Nerve PNS Sprint lead placement with local and US guidance once recovered from back surgery. We also reviewed genicular RFA as a back option. Patient's family demonstrated adequate understanding of a potential peripheral nerve stimulation device placement, maintenance and operation and will assist patient with weekly dressing changes during Sprint trial period. All questions were answered and patient and family agreed with the plan. Follow up after injections and sooner if needed. Justification for interventional therapy: ? Patient with average pain > 6/10 ? Patient has exhausted conservative therapy The risks, consequences, alternatives, and benefits of various treatment options were discussed with the patient in great detail, including conservative management, injections and procedures. Medications: Discontinued gabapentin 100 mg PO TID 30 days 90 caps 8RF Coding Level of Care Code Est Pt Level 4 (86661) Diagnoses Bilateral primary osteoarthritis of knee M17.0 Bilateral knee pain M25.561; M25.562 Polyarthralgia M25.50 Spinal stenosis at L4-L5 level M48.061 Chronic pain syndrome G89.4
[2023-05-16 08:24] VITALS: BP 106/71; PULSE 78; O2SAT 97; BMI 26.9
== END 2023-05-16 08:49 | disposition home or self-care (01) ==
PROVIDERS: PCP Internal Medicine; Visit Provider Nurse Practitioner Family
DX: M17.0 Bilateral primary osteoarthritis of knee (principal); M25.561 Pain in right knee; M25.562 Pain in left knee; M25.50 Pain in unspecified joint; M48.061 Spinal stenosis, lumbar region without neurogenic claudication; G89.4 Chronic pain syndrome
CPT/HCPCS: 99214

== ENCOUNTER → 2023-05-16 08:13 | Outpatient (BNVA) | payer MEDICARE, MEDICAID, SELFPAY | PROVIDERS: PCP Internal Medicine; Visit Provider Nurse Practitioner Family | DX: M47.816 Spondylosis without myelopathy or radiculopathy, lumbar region (principal); M17.0 Bilateral primary osteoarthritis of knee; M47.812 Spondylosis without myelopathy or radiculopathy, cervical region; M19.041 Primary osteoarthritis, right hand; M19.042 Primary osteoarthritis, left hand; M25.561 Pain in right knee; M25.562 Pain in left knee; M25.50 Pain in unspecified joint; M48.061 Spinal stenosis, lumbar region without neurogenic claudication; G89.4 Chronic pain syndrome | CPT/HCPCS: 99202; 99212 ==

== ENCOUNTER 2023-05-16 08:53 | Outpatient (AMB) | payer MEDICARE, MEDICAID, SELFPAY ==
[2023-05-16 08:58] VITALS: BP 140/66; PULSE 82; TEMP 36.8; O2SAT 97; BMI 25.8
--- NOTE | 2023-05-16 08:58 | MHC.OFFVIS ---
Intake Vital Signs 05/16/23 08:58 Height 4 ft 11 in Weight 127 lb 10.362 oz BMI 25.8 BP 140/66 H Blood Pressure Location Rt brachial Position Sitting Pulse 82 Pulse Source Pulse Oximeter Temp 98.2 F Temp Source Skin Pulse Oximetry (%) 97 Intake Visit Reasons: Bilat knee oa Intake Note: New pt presents today for OA consult. C/o pain in multiple joints Follows with pain mgmt and spine center Gamma Operator Required: No Accompanied by: Daughter Allergies amoxicillin Allergy (Intermediate, Verified 05/16/23 09:00) Swelling azithromycin Allergy (Intermediate, Verified 05/16/23 09:00) Itching levofloxacin Allergy (Intermediate, Verified 05/16/23 09:00) Itching nitrofurantoin Allergy (Intermediate, Verified 05/16/23 09:00) Itching atenolol Allergy (Unknown, Verified 05/16/23 09:00) unknown reaction per daughter HPI HPI Comments History of Present Illness Details The patient presents with her daughter who translates for us. The patient has had a 20 year history of joint pain she says in many areas. This includes the neck, shoulders, lower back, hands, and knees. She has taken acetaminophen in the past which is occasionally helpful. Recently she has been on some hydrocodone which was initially helpful but not subsequently. She is followed in pain management. She has received injections in the knees and also in the thigh area she got a nerve block. The workup on the neck ended up with a plan for surgery later on this month. She does not have any history of prior surgeries on the joints or bones. She does not recall any fractures. She lives alone but the family helps out since they live nearby. The patient walks with a walker. [facility] Medical History (Updated 05/16/23 @ 11:03 by Neto Bai MD) Anxiety Asthma Back pain Bilateral primary osteoarthritis of knee Cerebral aneurysm Chronic pain syndrome COPD (chronic obstructive pulmonary disease) CVA (cerebral vascular accident) Diabetes Elevated cholesterol GERD (gastroesophageal reflux disease) HTN (hypertension) Myocardial infarction Osteoporosis Pain in unspecified joint Spondylosis without myelopathy or radiculopathy, lumbar region Surgical History (Updated 05/16/23 @ 09:00 by Rosangela Taylor [facility]) H/O colonoscopy History of esophagogastroduodenoscopy (EGD) Hx of bilateral cataract extraction Hx of cholecystectomy Status post carotid endarterectomy Social History (Updated 05/16/23 @ 08:59 by Rosangela Taylor [facility]) Household Members: None Are you a primary vision care associate to a significant other at home: No Do you presently have 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 Low energy. Negative for fever, chills, malaise and fatigue Eyes Details: Occasional headache. Negative for vision change, dry eyes,headaches and dizziness ENT Details: Negative for hearing change, tinnitus, oral ulcer, nose bleeds and oral dryness. Card Details: Occasional ankle swelling attributed to venous insufficiency. Negative chest pain, palpitations and syncope Resp Details: Negative for SOB, cough and wheezing GI Details: Occasional heartburn helped with famotidine. Negative dysphagia, nausea, abdominal pain, bowel changes, diarrhea, constipation and bloody stool. Details: Negative for dysuria, hematuria, nocturia, decreased force/flow and genital discharge Skin/Breast Details: Negative for itching, rash, hives, Raynaud's symptoms, sun sensitivity, and skin cancer Neuro Details: Occasional hand and foot numbness. History of a CVA that left her with a right ptosis. Negative for epilepsy, palsy, stroke, changes in speech, and weakness Psych Details: Negative for anxiety, depression and stress Endo Details: Negative for polyuria and polydypsia Bruno/Lymph Details: Negative for excessive bruising or bleeding. Physical Exam Vital Signs: Last Vital Signs Temp 98.2 F 05/16/23 08:58 Pulse 82 05/16/23 08:58 BP 140/66 H 05/16/23 08:58 Pulse Ox 97 05/16/23 08:58 BMI result Body Mass Index 25.8 APPEARANCE: Patient in no acute distress EYES no redness, pupils equal and reactive to light, eyelids normal. She has the right eyelid taped open because she says the eyelid droop since her stroke. EARS: External ear normal, canal clear and tympanic membrane normal. NOSE/SINUS: Airflow through both nares, no nasal discharge, no bleeding THROAT: Oral mucosa moist, no ulcerations NECK: No thyromegaly or masses, no adenopathy, trachea midline. HEART: Regulrar rhythm, S1-S2 heard, no murmurs, rubs or gallops. LUNG: Clear to percussion; decreased breath sounds but some expiratory wheezes. ABD: Normal bowel sounds, no organomegaly, masses. She has some slight left upper quadrant tenderness. EXTREMITIES: No edema, no calf tenderness. She does have prominent varicose veins from the mid calf distally overt into the feet. None of these are tender. The skin is intact. There are normal peripheral pulses. NEURO: Oriented and alert x3. No focal weakness. Reflexes symmetric. Walks slowly with a walker. Has the above-mentioned right eye Ptosis. SKIN: No inflammatory or neoplastic lesions. Normal color and turgor JOINT EXAM:.?? Cervical Spine:.? Mild pain with lateral flexion at 10 degrees or rotation at 45 degrees. Some cervical muscle tenderness. Thoracic Spine:.? No scoliosis.? No tenderness on palpation. Lumbar Spine:.? Alignment normal.? Mild pain with flexion at 45 degrees. There is some paraspinal muscle tenderness. Chest Wall:.? No tenderness, swelling, increased warmth or erythema. Hands: Right: There is bony enlargement and slight tenderness at the base of the thumb. There is nontender bony enlargement at the thumb IP in all the PIP joints. There is nontender bony enlargement at the 2nd, 3rd, and 5th DIP joints. There is some slight thenar atrophy but no sensory loss. No soft tissue swelling, redness or warmth. Left: Mild bony enlargement and tenderness at the base of the thumb. There is mild bony enlargement at the 2nd through 5th PIP joints. There is slight bony enlargement without tenderness at the 2nd D IP joint. Neck there is some mild thenar atrophy without sensory loss. No soft tissue swelling, redness or warmth.? Wrists:.? Mild pain with flexion extension at 75 degrees with some slight dorsal tenderness but no redness or swelling.. Elbows:. Normal pain-free range of motion without tenderness, swelling, increased warmth or erythema. Shoulders: Right: Mild pain with abduction at 150 degrees or with extremes of rotation. Slight anterior tenderness without abductor weakness, swelling or adenopathy. Left: Moderate pain with abduction 110 degrees or with the attempts at rotation more than 20 degrees. Mild anterior tenderness. Questionable abductor weakness without having adenopathy or swelling. Hips: Right: Mild lumbar pain with extremes of abduction or internal rotation. No groin pain with motion. Left:? Full range of motion without pain. Hip bursa:.? No tenderness. Knees:.??Right: Mild pain with extremes of flexion or extension. She has significant valgus deformity, moderate patellofemoral crepitus and medial tenderness but no redness or effusion. Left: Mild pain with more than 45 degrees range of motion. The valgus deformity is more marked on the left than the right. There is mild medial compartment tenderness, mild patellofemoral crepitus but no popliteal tenderness, swelling, redness or warmth. Ankles:.? Normal pain-free range of motion without tenderness, swelling, increased warmth or erythema. Feet:.? Both feet have bilateral pes planus deformities but no tenderness or soft tissue swelling. There is some slight 1st MTP bony enlargement. The skin envelope is intact. Tender points:.? Mild tenderness to digital palpation at the trapezius, knees, greater trochanter and gluteal area bilaterally. ? Results Reviewed Results Reviewed: [address] [address] XRay Report Signed Patient: Queta Castro MR#: [id number] : 1940 Acct:[id number] Age/Sex: 82 / F ADM Date: 04/19/[address]: Lisbet SANTAMARIA Ordering Physician: Lisbet Lantigua Date of Service: 04/19/23 Procedure(s): XR knee LT 3V Accession Number(s): [id number] cc: Lisbet Lantigua~ Examination: X-ray knee, bilateral INDICATION: Bilateral primary osteoarthritis of knee COMPARISON: None available TECHNIQUE: 3 views of the bilateral knees FINDINGS: There are advanced tricompartmental degenerative changes bilaterally with marked cartilage space narrowing and bulky osteophyte formation. No displaced fracture appreciated. Bones are demineralized. Extensive vascular calcifications. XR/XR knee LT 3V IMPRESSION: 1.? Advanced bilateral tricompartmental degenerative changes. 2.? Extensive vascular calcifications. ? Dictated By: Goran Rubi MD Assessment & Plan Assessment & Plan (1) Spondylosis without myelopathy or radiculopathy, lumbar region: Code(s): M47.816 - Spondylosis without myelopathy or radiculopathy, lumbar region (2) Osteoarthritis of knees, bilateral: Code(s): M17.0 - Bilateral primary osteoarthritis of knee (3) Cervical osteoarthritis: Code(s): M47.812 - Spondylosis without myelopathy or radiculopathy, cervical region (4) Osteoarthritis of hands, bilateral: Code(s): M19.041 - Primary osteoarthritis, right hand; M19.042 - Primary osteoarthritis, left hand Plan Patient presents with multiple areas of pain. On exam there is evidence of osteoarthritis in the hands, knees, lumbar spine and cervical spine. Apparently symptoms in the neck are severe enough to warrant a surgical treatment and that is being planned for later this month. She has had treatments from Pain Management to try to control the knee pain. These have been partially successful. Apparently other procedures are planned. She does not notice any significant swelling in the knees. She might have fallen on the knees when she was a youngster. She is currently on some lidocaine patches, hydrocodone/acetaminophen and gabapentin. She is not a candidate for NSAIDs because of her age and history of GERD. These would predispose to an increased likelihood of GI bleeding. I do not see any signs of an active inflammatory arthritis. I gave her some information in Moldovan on osteoarthritis from the [employer] website. I think for now we have little to offer in Rheumatology outside of what the Pain Clinic is offering in terms of pain relief with injections and other modalities. She will follow-up if symptoms change in the future. Medications: Discontinued gabapentin 100 mg PO TID 30 days 90 caps 8RF Coding Level of Care Code New Pt Level 3 (92025) Diagnoses Spondylosis without myelopathy or radiculopathy, lumbar region M47.816 Osteoarthritis of knees, bilateral M17.0 Cervical osteoarthritis M47.812 Osteoarthritis of hands, bilateral M19.041; M19.042
== END 2023-05-16 09:47 | disposition home or self-care (01) ==
PROVIDERS: PCP Internal Medicine; Visit Provider Internal Medicine Rheumatology
DX: M47.816 Spondylosis without myelopathy or radiculopathy, lumbar region (principal); M17.0 Bilateral primary osteoarthritis of knee; M47.812 Spondylosis without myelopathy or radiculopathy, cervical region; M19.041 Primary osteoarthritis, right hand; M19.042 Primary osteoarthritis, left hand
CPT/HCPCS: 99203

== ENCOUNTER 2023-05-26 06:55 | Day surgery (SDC) | payer OTHER, MEDICAID, SELFPAY ==
[2023-05-12 12:44] VITALS: BMI 25.4
--- NOTE | 2023-05-25 13:29 | P.CONAN_ITS ---
Documented by User: Sylvie Zhang NP 05/25/23 13:31 HPI - Anesthesia Eval Consult details Narrative: 82yo F for Right L5 Laminectomy Lumbar Decompression Cardiac optimized - ekg, stress, and labs from outside facility on chart [facility] Active Problems Active Problems: All Active Problems (Updated 05/16/23 @ 11:03 by Neto Bai MD) Cervical osteoarthritis (Acute) Osteoarthritis of hands, bilateral (Acute) History of myocardial infarction (Acute) Osteoarthritis of knees, bilateral (Acute) Polyarthralgia (Acute) Left shoulder pain (Acute) Spinal stenosis at L4-L5 level (Acute) Spondylolisthesis, lumbar region (Acute) Osteoporosis (Acute) Status post carotid endarterectomy (Acute) Chronic pain syndrome (Acute) Spondylosis without myelopathy or radiculopathy, lumbar region (Acute) Past Medical History Medical History Anxiety Asthma Back pain Bilateral primary osteoarthritis of knee Cerebral aneurysm Chronic pain syndrome COPD (chronic obstructive pulmonary disease) CVA (cerebral vascular accident) Diabetes Elevated cholesterol GERD (gastroesophageal reflux disease) HTN (hypertension) Myocardial infarction Osteoporosis Pain in unspecified joint Spondylosis without myelopathy or radiculopathy, lumbar region Surgical History Surgical History H/O colonoscopy History of esophagogastroduodenoscopy (EGD) Hx of bilateral cataract extraction Hx of cholecystectomy Status post carotid endarterectomy Social History Social History Household Members: None Are you a primary career portals teacher to a significant other at home: No 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 If so, by whom?: No Are you DNR?: No Advance Directives Information Provided: Yes (brochure mailed) Advance Directives on File: No Recently lost weight without trying: No Eating poorly because of decreased appetite: No Nutrition Risks: Surgical patient >75years Poor oral hygiene: Yes (missing teeth, one crown) Meds Allergies Allergy/AdvReac Type Severity Reaction Status Date / Time amoxicillin Allergy Intermediate Swelling Verified 05/16/23 09:00 azithromycin Allergy Intermediate Itching Verified 05/16/23 09:00 levofloxacin Allergy Intermediate Itching Verified 05/16/23 09:00 nitrofurantoin Allergy Intermediate Itching Verified 05/16/23 09:00 atenolol Allergy Unknown unknown Verified 05/16/23 09:00 reaction per daughter Home Medications Medication Instructions Recorded Confirmed Last Taken Type amlodipine 10 mg tablet 10 mg PO DAILY 04/01/21 05/26/23 05/26/23 History atorvastatin 40 mg tablet 40 mg PO BEDTIME 04/01/21 05/11/23 Unknown History diphenhydramine HCl 25 mg capsule 25 mg PO BEDTIME 04/01/21 05/12/23 Unknown History (Benadryl) fluticasone furoate 100 1 inh inhalation DAILY 04/01/21 05/11/23 Unknown History mcg-vilanterol 25 mcg/dose inhalation powder (Breo Ellipta) fluticasone propionate 50 1 spray intranasal DAILY 04/01/21 05/11/23 Unknown History mcg/actuation nasal spray,suspension (Allergy Relief (fluticasone)) sertraline 25 mg tablet 25 mg PO DAILY 04/01/21 05/26/23 05/26/23 History spironolactone 25 mg tablet 25 mg PO DAILY 04/01/21 05/11/23 Unknown History (Aldactone) albuterol sulfate 2.5 mg/3 mL 2.5 mg inhalation TID 11/05/22 05/11/23 Unknown History (0.083 %) solution for nebulization albuterol sulfate 90 mcg/actuation 2 puff inhalation Q4-6H PRN 11/05/22 05/12/23 Unknown History aerosol inhaler Wheezing aspirin 81 mg chewable tablet 1 tab PO DAILY 11/05/22 05/11/23 Unknown History famotidine 20 mg tablet 20 mg PO BEDTIME 11/05/22 05/12/23 Unknown History loratadine 10 mg tablet 10 mg PO DAILY 11/05/22 05/11/23 Unknown History omeprazole 20 mg capsule,delayed 20 mg PO DAILY 11/05/22 05/26/23 05/26/23 History release docusate sodium 100 mg capsule 100 mg PO BID 02/28/23 05/12/23 Unknown History nystatin 100,000 unit/mL oral 5 ml PO TID PRN oral thrush 03/21/23 05/11/23 Unknown History suspension ramelteon 8 mg tablet 8 mg PO BEDTIME 05/11/23 05/11/23 Unknown History gabapentin 100 mg capsule 100 mg PO TID PRN Pain 05/12/23 05/11/23 Unknown History hydrocodone 5 mg-acetaminophen 325 1 tab PO Q8H PRN pain 05/16/23 Unknown Histo ry mg tablet polyethylene glycol 3350 17 17 g PO DAILY PRN 05/16/23 Unknown History gram/dose oral powder fluticasone furoate 100 1 ea inhalation DAILY 05/26/23 05/26/23 05/26/23 History mcg-vilanterol 25 mcg/dose inhalation powder (Breo Ellipta) Exam Exam Date and Time: May 25, 2023 1329 Height,Weight and Vital Signs: Height 4 ft 11 in Weight 57.153 kg Assessment and Plan Assessment Anesthesia Assessment: Chart Reviewed Documented by User: Amanda Deleon MD 05/26/23 08:39 PMFSH Past Medical History Medical History Anxiety Asthma Back pain Bilateral primary osteoarthritis of knee Cerebral aneurysm Chronic pain syndrome COPD (chronic obstructive pulmonary disease) CVA (cerebral vascular accident) Diabetes Elevated cholesterol GERD (gastroesophageal reflux disease) HTN (hypertension) Myocardial infarction Osteoporosis Pain in unspecified joint Spondylosis without myelopathy or radiculopathy, lumbar region Family History Family history of problems with anesthesia: No Surgical History Surgical History H/O colonoscopy History of esophagogastroduodenoscopy (EGD) Hx of bilateral cataract extraction Hx of cholecystectomy Status post carotid endarterectomy History of Problems with Anesthesia: No Social History Social History Household Members: None Are you a primary career portals teacher to a significant other at home: No 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 If so, by whom?: No Are you DNR?: No Advance Directives Information Provided: Yes (brochure mailed) Advance Directives on File: No Recently lost weight without trying: No Eating poorly because of decreased appetite: No Nutrition Risks: Surgical patient >75years Poor oral hygiene: Yes (missing teeth, one crown) Meds Allergies Allergy/AdvReac Type Severity Reaction Status Date / Time amoxicillin Allergy Intermediate Swelling Verified 05/16/23 09:00 azithromycin Allergy Intermediate Itching Verified 05/16/23 09:00 levofloxacin Allergy Intermediate Itching Verified 05/16/23 09:00 nitrofurantoin Allergy Intermediate Itching Verified 05/16/23 09:00 atenolol Allergy Unknown unknown Verified 05/16/23 09:00 reaction per daughter Home Medications Medication Instructions Recorded Confirmed Last Taken Type amlodipine 10 mg tablet 10 mg PO DAILY 04/01/21 05/26/23 05/26/23 History atorvastatin 40 mg tablet 40 mg PO BEDTIME 04/01/21 05/11/23 Unknown History diphenhydramine HCl 25 mg capsule 25 mg PO BEDTIME 04/01/21 05/12/23 Unknown History (Benadryl) fluticasone furoate 100 1 inh inhalation DAILY 04/01/21 05/11/23 Unknown History mcg-vilanterol 25 mcg/dose inhalation powder (Breo Ellipta) fluticasone propionate 50 1 spray intranasal DAILY 04/01/21 05/11/23 Unknown History mcg/actuation nasal spray,suspension (Allergy Relief (fluticasone)) sertraline 25 mg tablet 25 mg PO DAILY 04/01/21 05/26/23 05/26/23 History spironolactone 25 mg tablet 25 mg PO DAILY 04/01/21 05/11/23 Unknown History (Aldactone) albuterol sulfate 2.5 mg/3 mL 2.5 mg inhalation TID 11/05/22 05/11/23 Unknown History (0.083 %) solution for nebulization albuterol sulfate 90 mcg/actuation 2 puff inhalation Q4-6H PRN 11/05/22 05/12/23 Unknown History aerosol inhaler Wheezing aspirin 81 mg chewable tablet 1 tab PO DAILY 11/05/22 05/11/23 Unknown History famotidine 20 mg tablet 20 mg PO BEDTIME 11/05/22 05/12/23 Unknown History loratadine 10 mg tablet 10 mg PO DAILY 11/05/22 05/11/23 Unknown History omeprazole 20 mg capsule,delayed 20 mg PO DAILY 11/05/22 05/26/23 05/26/23 History release docusate sodium 100 mg capsule 100 mg PO BID 02/28/23 05/12/23 Unknown History nystatin 100,000 unit/mL oral 5 ml PO TID PRN oral thrush 03/21/23 05/11/23 Unknown History suspension ramelteon 8 mg tablet 8 mg PO BEDTIME 05/11/23 05/11/23 Unknown History gabapentin 100 mg capsule 100 mg PO TID PRN Pain 05/12/23 05/11/23 Unknown History hydrocodone 5 mg-acetaminophen 325 1 tab PO Q8H PRN pain 05/16/23 Unknown History mg tablet polyethylene glycol 3350 17 17 g PO DAILY PRN 05/16/23 Unknown History gram/dose oral powder fluticasone furoate 100 1 ea inhalation DAILY 05/26/23 05/26/23 05/26/23 History mcg-vilanterol 25 mcg/dose inhalation powder (Breo Ellipta) Exam Airway Mallampati Class: II TM Dist: >3cm Heart: rrr Lungs: cta Assessment and Plan Assessment Anesthesia Assessment: Anesthesia Plan Discussed Final Anesthetic Review Family History of Problems with Anesthesia: No History of Problems with Anesthesia: No NPO: Yes ASA Class: III Final Preanesthetic Review: No Changes in Pt Med Stat, Meds/Allgs Chart Reviewed, Consent Obtained/Reviewed and Anes Risks/Benef Reviewed Patient Risk: Intermediate Procedure Risk: Intermediate Anesthetic Plan Anesthetic Plan: GA Disposition: Standard PACU
[2023-05-26] VITALS (9 sets, daily range): BP systolic 123–154; BP diastolic 51–75; PULSE 82–87; RESP 16–18; TEMP 36.8–36.9; O2SAT 94–98; BMI 26.1
--- NOTE | ~2023-05-26 | FL_ITS ---
EXAMINATION: XR FLUOROSCOPY WITH IMAGES CLINICAL INFORMATION: L5 lumbar decompression. COMPARISON: None available. TECHNIQUE: Fluoroscopy Supervised By: Dr. Judson Aguayo. Fluoroscopy Time: 0.0 minutes. Cumulative Dose: 2.78 mGy. DAP: 0.665 Gycm2. Images: 2. FINDINGS: Lateral intraoperative views demonstrate surgical instrument placement projecting adjacent to and over the posterior elements of L5. FL/FL guidance in OR IMPRESSION: Fluoroscopic guidance for L5 lumbar decompression.
--- NOTE | 2023-05-26 07:11 | MHC.SHP ---
Pre-Procedural Eval Section A Date of Service: 05/26/23 The patient is an INPATIENT: No Changes since office visit: No Cold of Flu in the past 2 weeks, No New Medical Problems, No Changes in Medication and No Patient answered all questions The History & Physical has been completed within 30 days and I have reviewed it.: No Section B Chief Complaint: Spondylolisthesis, lumbar region Allergies: Allergies Allergy/AdvReac Type Severity Reaction Status Date / Time amoxicillin Allergy Intermediate Swelling Verified 05/16/23 09:00 azithromycin Allergy Intermediate Itching Verified 05/16/23 09:00 levofloxacin Allergy Intermediate Itching Verified 05/16/23 09:00 nitrofurantoin Allergy Intermediate Itching Verified 05/16/23 09:00 atenolol Allergy Unknown unknown Verified 05/16/23 09:00 reaction per daughter Review of Systems Sugical H&P ROS: Negative: Constitution, Cardiovascular, Respiratory, Neurological, Psychiatric, Hem-Onc, Allergic/Immunologic, Gastrointestinal, Genitourinary, Musculoskeletal, Integumentary, Endocrine and Eyes/Ears/Nose/Throat Exam Surgical H&P Exam: Not Evaluated: HEENT, Not Evaluated: Heart, Not Evaluated: Lungs, Not Evaluated: Extremities, Not Evaluated: Abdomen, Not Evaluated: Skin and Not Evaluated: Neurological Plan Diagnosis/Plan: Unchanged I have reviewed the history and physical and performed a pertinent physical examination on my patient. No changes have occurred unless specified. right L5 foraminotomy Time Spent With Patient Time: Total time managing care of this patient today _10___ minutes.
[2023-05-26] MEDS: methocarbamoL 750 MG TABLET PO (08:14)
[2023-05-26] MEDS: Gabapentin 300 MG CAPSULE PO (08:14)
[2023-05-26] MEDS: Albuterol Sulfate (0.083%) 2.5 MG/3 ML VIAL.NEB INHALE (08:16)
[2023-05-26 08:21] LABS: Glucose, Whole Blood 123 mg/dL (60-115)
[2023-05-26] MEDS: Lactated Ringers 1,000 ML 100 ML IVCONT (08:34)
[2023-05-26] MEDS: vancomycin HCL 1,000 MG in 0.9 % Sodium Chloride 250 ML 270 MG IV (08:34)
--- NOTE | 2023-05-26 10:36 | PM.DS ---
DS: Providers Provider Date of Service: 05/26/23 Date of discharge: 05/26/23 Primary care physician: Stephanie Justice MD Admitting clinician: Judson Aguayo DS: Diagnosis Discharge Diagnosis (1) Spinal stenosis at L4-L5 level: Status: Acute DS: Summary Time Spent with Patient Time attestation: Total time managing care of this patient today ____ minutes. Discharge coordination time: Less than 30 minutes Quality: Safe Use of Opioids Does Pt have an Active Cancer Diagnosis on the Problem List?: No Quality: Stroke Does the patient have a stroke diagnosis?: No Physical Exam Vital Signs: Vital Signs: Last Vital Signs Temp 98.4 F 05/26/23 08:06 Pulse 82 05/26/23 08:19 Resp 16 05/26/23 08:19 BP 137/69 05/26/23 08:06 Pulse Ox 95 05/26/23 08:06 O2 Del Method Room Air 05/26/23 08:06 BMI result Body Mass Index 26.1 DS: Data Data Completed and Pending Labs on day of discharge: Laboratory Results - last 24 hr 05/26/23 08:18 POC Glucose 123 H Discharge Plan Discharge Patient Disposition: Home, Self-Care Referrals: Stephanie Justice MD [Primary Care Provider] - 1 Week Discharge Medications: New oxycodone 5 mg tablet 5 mg PO Q6-8H PRN (Reason: pain) Qty: 20 0RF Rx Instructions: Partial Fill upon patient request. Continued ramelteon 8 mg Tablet 8 mg PO BEDTIME gabapentin 100 mg capsule 100 mg PO TID PRN (Reason: Pain) fluticasone furoate-vilanterol [Breo Ellipta] 100-25 mcg/dose blister with device 1 ea INHALATION DAILY amlodipine 10 mg tablet 10 mg PO DAILY atorvastatin 40 mg tablet 40 mg PO BEDTIME Breo Ellipta 100-25 mcg/dose blister with device 1 inh inhalation DAILY diphenhydramine HCl [Benadryl] 25 mg capsule 25 mg PO BEDTIME fluticasone propionate [Allergy Relief (fluticasone)] 50 mcg/actuation spray,suspension 1 spray intranasal DAILY Rx Instructions: administer into each nostril sertraline 25 mg tablet 25 mg PO DAILY spironolactone [Aldactone] 25 mg tablet 25 mg PO DAILY aspirin 81 mg tablet,chewable 1 tab PO DAILY famotidine 20 mg tablet 20 mg PO BEDTIME albuterol sulfate 2.5 mg /3 mL (0.083 %) solution for nebulization 2.5 mg inhalation TID loratadine 10 mg tablet 10 mg PO DAILY albuterol sulfate 90 mcg/actuation HFA aerosol inhaler 2 puff inhalation Q4-6H PRN (Reason: Wheezing) omeprazole 20 mg capsule,delayed release(DR/EC) 20 mg PO DAILY docusate sodium 100 mg capsule 100 mg PO BID nystatin 100,000 unit/mL suspension 5 ml PO TID PRN (Reason: oral thrush) diclofenac sodium [Arthritis Pain (diclofenac)] 1 % gel 4 g topical QID Qty: 100 3RF Rx Instructions: apply to single knee, ankle, foot; for foot includes sole/toes/top of foot lidocaine 5 % adhesive patch,medicated 2 patch topical DAILY Qty: 30 2RF polyethylene glycol 3350 17 gram/dose powder 17 g PO DAILY PRN Held hydrocodone-acetaminophen 5-325 mg tablet 1 tab PO Q8H PRN (Reason: pain) Hold Instructions: Resume on 06/02/23. you can resume once you use up your post op prescription for oxycodone Discharge Orders: Discharge Order (Routine); Ordered 05/26/23 Ordered By: Crescencio Cates Diet: Diabetic diet Activity on Discharge: As tolerated Activity Restrictions/Additional Instructions: After your spinal surgery we ask you to observe the following restrictions/guidelines: Activity: It is normal to feel some discomfort as you increase your activity, but that will improve with time. We ask you avoid heavy lifting or acitivities that cause pain. As a general rule, 8lbs is a safe limit for lifting right after surgery. Walk as much as you feel comfortable but not to exhaustion. You will feel extra tired the first few days after surgery. Stay well hydrated. It is OK to walk up and down stairs You may return to driving when you are off narcotics (such as vicodin, oxycodone, dilaudid, etc), and you are back to normal functional capacity. If you have any concerns please check with office before driving. Return to work is specific to each patient and each surgery, so please speak with your doctor/PA at first follow up. Please bring paperwork such as FMLA at that time if you need it filled out. Medications: For optimum pain control, it is best to start with a combination of 500 mg of Tylenol every 4 hours with 600 mg of Motrin every 8 hours, and use narcotics as needed in between for breakthrough pain. We will give you a short supply of narcotics after surgery (usually one weeks worth). If you need more please call the office but do not use more than prescribed. You will need to give our office 48 hours notice if you need narcotics refilled and we do not fill narcotics on weekends or evenings. If you are on a narcotic, it is a good idea to take a stool softener such as colace or senna to avoid constipation If you take blood thinner such as aspirin, Plavix, Coumadin, Effient, Eliquis etc for conditions such as Afib, DVT, Pulmonary embolus, coronary disease, stents etc please speak with your surgeon about specific details as to when you can resume these medications. You can resume NSAIDs on post op day 1 (eg: Motrin, Naproxen, etc). Follow up: Please call the office, , after surgery to arrange a 3 week follow up for wound check. Wound Care: You may remove your dressing on the first day after surgery. You may leave open to air. Please do not remove the steri strips underneath. they will fall off on their own in one week. IT IS NORMAL FOR THE WOUND TO OOZE OR BE BLOODY FOR A FEW DAYS AFTER SURGERY. IF THIS HAPPENS JUST PLACE NEW DRESSING OVER IT TO AVOID STAINING CLOTHES. You may shower on post op day # 1 We ask that you do not let the water soak the wound. If it does get wet, just towel dry lightly. Please do not scrub your incision or place any type of chemical/ointment on the wound. No tub baths, pools or jacuzzis for one month. If you have any leaking or redness from your wound, or fevers, please call office
--- NOTE | 2023-05-26 10:40 | W.PM.OPN ---
Operative Note Operative Note Date of Service: 05/26/23 Narrative: Preoperative Diagnosis: Spinal stenosis/lateral recess stenosis/neuroforaminal stenosis Operation: Right L5 Laminotomy, Partial facetectomy and foraminotomy with use of microscope Consent Informed Consent was obtained for this operation. I have explained the nature, purpose and benefits of the operation. I have discussed the risks and benefit of the operation including possible complications or adverse events with patient/family. Alternative(s) were discussed with the patient with their relative benefits and risks as well as the consequences of not accepting the operation were included in obtaining consent. Surgeon: SAMEER PARMAR MD, PHD Procedure Assisted By: Crescencio Lane Description of Procedure This patient suffered from a right lumbar radiculopathy with MRI showing at left L5 neuroforaminal stenosis. The patient was offered a decompression of the nervous structures. The procedure complications were explained. The patient was consented. The patient was brought to the operating room and endotracheally intubated. The patient was turned in prone position on the Godfrey frame. Prep and drape was done followed by timeout. Physician elementary assistant principal provided access. A mid lumbar incision was made followed by release of the paravertebral muscle on the right side to expose the L5 lamina and facet joint. An intraoperative x-ray was obtained to confirm the correct level. The microscope was brought in. I took over the procedure. The high-speed drill was used to do a L5 laminotomy. #2 Kerrison was used to further remove the lamina towards the L5 foramen. With a nerve hook the medial wall of the L5 pedicle was palpated as well as the beginning of the L5 foramen. The facet joint was partially drilled down after which with a #2 Kerrison a foraminotomy was done. Finally a foraminotomy Kerrison was used to complete the foraminotomy. A long the nerve root could be easily passed, a sign of relief of the neuroforaminal stenosis and decompression of the nerve root . The microscope was removed. Hemostasis was done. Incision was closed in 2 layers. Steri-Strips were used to approximate incision. An OpSite with Tegaderm was used to cover the incision. All sponge needle counts were correct. Patient was extubated and transported in stable is to recovery room. Anesthesia: General Estimated Blood Loss (ml): Minimal Duration of Surgery: Under 60 Minutes Postoperative Plan: Discharge to home
[2023-05-26] MEDS: Ketorolac Tromethamine 30 MG/ML VIAL 15 MG IVPUSH (11:43)
--- NOTE | 2023-05-26 13:22 | HO.ANESEVENT ---
Anesthesia Event Note Date of Service: 05/26/23 Event Note: 82yr old smoker with slight frame , scoliosis postioned prone on wilsons frame and head on the protective positioning head frame. care was taken to ensure eyes and nose were free of pressure and this was verified by OR team. due to the fact that patient has a small face and sunken undereye area with very thin skin under the orbital area even the oressure of sponge in the undereye area in prone position forduration of surgery caused bruising this was explained to patient and family . no pressure signs over eye or lids noted . cold compress adviced. no vision disturbance or chemosis of conjuctiva or eye lids noted . no other complaints. Time Spent With Patient Time: Total time managing care of this patient today ____ minutes.
--- NOTE | 2023-05-26 13:32 | PC.NURSE ---
ANESTHESIOLOGIST SPOKE WITH PATIENT AND PT'S DAUGHTER PRIOR TO DISCHARGE. PATIENT'S DAUGHTER WAS QUESTIONING PATIENT WITH BLACK EYES WHICH WERE REPORTEDLY AQUIRED WHEN PATIENT WAS LAYING FACE DOWN DURING A 2 HOUR PROCEDURE. PT'S DAUGHTER STATED UNDERSTANDING.
== END 2023-05-26 13:32 | disposition home or self-care (01) ==
PROVIDERS: PCP Internal Medicine; Visit Provider Neurological Surgery
PROC: (CPT 63047; principal; 2023-05-26 09:20)
DX: M48.061 Spinal stenosis, lumbar region without neurogenic claudication (principal); M43.16 Spondylolisthesis, lumbar region; M54.16 Radiculopathy, lumbar region; M54.50 Low back pain, unspecified; I25.10 Atherosclerotic heart disease of native coronary artery without angina pectoris; I10 Essential (primary) hypertension; E11.9 Type 2 diabetes mellitus without complications; I25.2 Old myocardial infarction; J44.9 Chronic obstructive pulmonary disease, unspecified; Z79.51 Long term (current) use of inhaled steroids; Z79.82 Long term (current) use of aspirin; Z79.899 Other long term (current) drug therapy; Z88.1 Allergy status to other antibiotic agents; Z88.8 Allergy status to other drugs, medicaments and biological substances; F17.210 Nicotine dependence, cigarettes, uncomplicated
CPT/HCPCS: 63047; 82947; 94640; 99499; J0131; J1100; J1643; J1885; J2405; J3010; J3370

== ENCOUNTER → 2023-05-26 06:55 | Outpatient (BNV) | payer OTHER, MEDICAID, SELFPAY | PROVIDERS: PCP Internal Medicine; Visit Provider Physician Assistant | DX: M48.061 Spinal stenosis, lumbar region without neurogenic claudication (principal) | CPT/HCPCS: 63047 ==

== ENCOUNTER 2023-06-17 14:33 | Outpatient (AMB) | payer OTHER, MEDICAID, SELFPAY ==
--- NOTE | 2023-06-17 14:36 | A.SPINEOV_ITS ---
Intake Intake Visit Reasons: 1st post op Intake Note: Ms. Castro is here today for her 1st post-op visit. 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 Allergies amoxicillin Allergy (Intermediate, Verified 05/16/23 09:00) Swelling azithromycin Allergy (Intermediate, Verified 05/16/23 09:00) Itching levofloxacin Allergy (Intermediate, Verified 05/16/23 09:00) Itching nitrofurantoin Allergy (Intermediate, Verified 05/16/23 09:00) Itching atenolol Allergy (Unknown, Verified 05/16/23 09:00) unknown reaction per daughter Assessment & Plan Assessment & Plan (1) Status post lumbar spine surgery for decompression of spinal cord: Code(s): Z98.890 - Other specified postprocedural states Afshin Birch is an 82-year-old female who comes in today for her 1st follow-up appointment. She is status post a right L5 laminotomy with foraminotomy. She states that her symptoms are largely the same as she was preoperatively, but does state that she does not feel like there is a pinching sensation in her back any longer. She does continue to have radicular symptoms and states that she still has pain originating in her back and radiating down her right leg. She continues to ambulate with the assistance of a walker, but is able to rise from a seated position without assistance. Overall she feels concerned with her lack of immediate improvement. We extensively discussed the healing process including inflammation, tissue layer healing, and nerve healing progress postoperatively. She was assured that she will likely begin to feel better by her 2nd postoperative visit, at which time we will get x-rays of the lumbar spine. She was booked for a 6 week follow-up appointment. She is encouraged to call the office if her symptoms worsen at all. On exam her incision site is well healing without signs of erythema, edema, or fluctuance. There is no leaking from the incisions say in a clean layer of crust has formed over the incision. Total amount of time spent in this visit was 20 minutes in discussion of symptoms, post-operative healing progress, and subsequent plan of care. Arturo Aguayo MD,PhD [facility] Orders: Orders XR lumbar spine 4V min 07/08/23 Z98.890 - Other specified postprocedural states Coding Level of Care Code Est Pt Level 3 (37847) Diagnoses Status post lumbar spine surgery for decompression of spinal cord Z98.890
== END 2023-06-17 14:55 | disposition home or self-care (01) ==
PROVIDERS: PCP Internal Medicine; Visit Provider Physician Assistant
DX: Z98.890 Other specified postprocedural states (principal)
CPT/HCPCS: 99213

== ENCOUNTER → 2023-06-17 14:33 | Outpatient (BNVA) | payer OTHER, MEDICAID, SELFPAY | PROVIDERS: PCP Internal Medicine; Visit Provider Physician Assistant | DX: Z48.89 Encounter for other specified surgical aftercare (principal) | CPT/HCPCS: 99212 ==

== ENCOUNTER → 2023-06-30 14:21 | Outpatient (BNVA) | payer OTHER, MEDICAID, SELFPAY | PROVIDERS: PCP Internal Medicine; Visit Provider Nurse Practitioner Family ==

== ENCOUNTER 2023-07-08 10:26 | Outpatient (REF) | payer OTHER, SELFPAY | END 2023-07-08 10:27 | disposition home or self-care (01) | LOC: HO.HOSX 10:26 | PROVIDERS: Visit Provider Physician Assistant | DX: Z13.89 Encounter for screening for other disorder (principal) ==

== ENCOUNTER 2023-08-03 13:57 | Outpatient (AMB) | payer OTHER, MEDICAID, SELFPAY ==
--- NOTE | 2023-08-03 14:14 | A.SPINEOV_ITS ---
Intake Intake Visit Reasons: 2nd post op with xrays Intake Note: Ms. Castro is here today for her 2nd post-op visit. C Application Developer Required: Yes Allergies amoxicillin Allergy (Intermediate, Verified 06/30/23 14:32) Swelling azithromycin Allergy (Intermediate, Verified 06/30/23 14:32) Itching levofloxacin Allergy (Intermediate, Verified 06/30/23 14:32) Itching nitrofurantoin Allergy (Intermediate, Verified 06/30/23 14:32) Itching atenolol Allergy (Unknown, Verified 06/30/23 14:32) unknown reaction per daughter Assessment & Plan Assessment & Plan (1) Status post lumbar spine surgery for decompression of spinal cord: Code(s): Z98.890 - Other specified postprocedural states Plan Procedure: right L5 laminotomy with foraminotomy Queta comes in today for her 2nd postoperative visit. She reports she is satisfied with the surgery and feels better than she did preoperatively. She s till does endorse some pain it her mid to low back but feels that it may be related to her arthritis. She states that the pain is worse with activity and walking and subsides when sitting and resting. She was strongly encouraged to continue getting up and attempting to complete her ADLs and walk around the house although this may be difficult for given her limitations. She did state that she continues to follow-up with pain management for her knees and hips, but is concerned that she continues to have some low back pain even being a couple months postoperative. We discussed the usage of Tylenol which he states she takes intermittently. I advised that she takes 1000 mg 3 times a day as needed for [id number]-nj-rzqurptt pain, alongside diclofenac gel which she can apply as needed up to 4 times a day. She is informed that these would be temporary prescriptions will not be able to continually prescribe these for her. This is just to hopefully get her through the next 1-2 months of postoperative healing. Postoperative x-ray looks unremarkable. Full strength 5/5 UE / LE. Sensation grossly intact. No neurological deficits noted. Patient ambulates with walker. Rises from seated position with assistance of chair. Incision site is closed, well healed with no sero- sanguineous drainage. Queta was informed that she no longer needs to follow up regularly. She may call the office if she feels she needs to see us again the future. Arturo Aguayo MD,PhD [facility] Medications: New acetaminophen 1,000 mg (2 x 500 mg) PO Q6H PRN 42 tabs 2RF MILD-MODERATE PAIN diclofenac sodium 1% (Aleve (diclofenac)) apply to single elbow, wrist or hand; for hand includes palm/fingers/back of hand 2 grams topical QID PRN 100 grams 1RF LOW BACK PAIN / ARTHRITIS Coding Level of Care Code Global (89845) Diagnoses Status post lumbar spine surgery for decompression of spinal cord Z98.890
== END 2023-08-03 14:49 | disposition home or self-care (01) ==
PROVIDERS: PCP Internal Medicine; Visit Provider Physician Assistant
DX: Z98.890 Other specified postprocedural states (principal)
CPT/HCPCS: 99024

== ENCOUNTER → 2023-08-03 13:57 | Outpatient (BNVA) | payer OTHER, MEDICAID, SELFPAY | PROVIDERS: PCP Internal Medicine; Visit Provider Physician Assistant ==

== ENCOUNTER 2023-08-03 13:58 | Outpatient (REF) | payer OTHER, MEDICAID, SELFPAY ==
--- NOTE | ~2023-08-03 | XR_ITS ---
EXAMINATION: XR LUMBOSACRAL SPINE CLINICAL INFORMATION: Reason for Exam Z98.890 - Other specified postprocedural states COMPARISON: None TECHNIQUE: 4 views of the lumbar spine FINDINGS: 5 nonrib-bearing lumbar-type vertebral bodies. Vertebral body heights are maintained. Grade 1 anterolisthesis of L4 on L5 and L5 on S1. Grade 1 retrolisthesis of L1 on L2 and L2 on L3. This does not appear appreciably changed on flexion extension views. Moderate multilevel degenerative disc disease with loss of disc space height and facet arthropathy. Advanced atherosclerotic calcifications of the abdominal aorta and branch vessels. XR/XR lumbar spine 4V min IMPRESSION: 1. Grade 1 anterolisthesis of L4 on L5 and L5 on S1. Grade 1 retrolisthesis of L1 on L2 and L2 on L3. This does not appear appreciably changed on flexion extension views. 2. Moderate multilevel degenerative disc disease with loss of disc space height and facet arthropathy. 3. Advanced atherosclerotic calcifications of the abdominal aorta and branch vessels.
== END 2023-08-03 13:59 | disposition home or self-care (01) ==
LOC: HO.HOSX 13:58
PROVIDERS: Visit Provider Physician Assistant
DX: Z98.890 Other specified postprocedural states (principal)
CPT/HCPCS: 72110

== ENCOUNTER 2025-09-16 14:29 | Outpatient (AMB) | payer OTHER, MEDICAID, SELFPAY ==
--- OUTSIDE RECORDS SUMMARY | 2025-09-16 10:00 | XMS_ITS | Encounter Summary ---
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 Procedures Transthoracic echocardiogram (TTE) complete with PRN contrast, bubble, strain, and 3D order panel TN TTE W 2D IMAGE COMPLETE W DOPPLER ECHO & COLOR FLOW DOPPLER ECHO TN DANNA 2D COMPLETE W/CONTRAST OR W & WO CONTRAST WITH DOPPLER Hayley Pope NP [address] [place] [address] Dr [address]oredo [address] [place] [phone] Phone: tel: fax: [facility] Referral ID Status Reason Start Date Expiration Date V isits Requested Visits Authorized [id number] Authorized 03/07/2025 03/07/2026 1 1 Encounter Details Date Type Department Care Team (Latest Contact Info) Description 09/16/2025 10:00 AM EST Ancillary Procedure [facility] - [address] [place] [phone] 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 Social History Tobacco Use Types Packs/Day Years Used Date Smoking Tobacco: Every Day Cigarettes Passive Smoke Exposure: Never Smokeless Tobacco: Never Alcohol Use Standard Drinks/Week Comments No 0 (1 standard drink = 0.6 oz pur e alcohol) Comments Unknown Sex and Gender Information Value Date Recorded Sex Assigned at Female 10/30/2024 1:47 PM EST Legal Sex Female 5:43 AM EST Gender Identity Female 10/30/2024 1:47 PM EST Sexual Orientation Straight 10/30/2024 1: 47 PM EST documented as of this encounter Last Filed Vital Signs Vital Sign Reading Time Taken Comments Blood Pressure 131/74 09/16/2025 10:30 AM EST Pulse - - Temperature - - Respiratory Rate - - Oxygen Saturation - - Inhaled Oxygen Concentration - - Weight 51.3 kg (113 lb) 09/16/2025 10:30 AM EST Height 149.9 cm (4' 11 ) 09/16/2025 10:30 AM EST Body Mass Index 22.82 09/16/2025 10:30 AM EST documented in this encounter Plan of Treatment Upcoming Encounters Date Type Department Care Team (Late st Contact Info) Description 09/18/2025 10:40 AM EST Office Visit [facility] - [address] [facility] [address] [place] [address] Hayley Pope NP [address] [place] [address] [address] [place] [address] 10/11/2025 2:00 PM EST Office Visit Vascular Surgery - [place] [address] [place] [address] Cecilia Farley PA [address] [place] [phone] 11/06/2025 10:30 AM EST Office Visit Pulmonology - [place] [address] [place] [phone] Paula Chavez MD [address] [place] [phone] 01/30/2026 9:15 AM EDT Ancillary Procedure [facility] - [address] [place] [address] [phone] 02/19/2026 10:30 AM EDT Office Visit Gastroenterology - [address] [place] [phone] Lashay Ortega PA [address] [place] [address] documented as of this encounter Procedures Procedure Name Priority Date/Time Associated Diagnosis Comments TRANSTHORACIC ECHOCARDIOGRAM (TTE) COMPLETE Routine 09/16/2025 10:35 AM EST 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 documented in this encounter Results * (ABNORMAL) TRANSTHORACIC ECHOCARDIOGRAM (TTE) COMPLETE (09/16/2025 10:35 AM EST) LV EDV (A2C) 53 mL CV PACS LV EDV (A4C) 57 mL CV PACS LV Diastolic Volume (BP) 55 46 - 106 mL CV PACS LV ESV (A2C) 19 mL CV PACS LV ESV (A4C) 21 mL CV PACS LV Systolic Volume (BP) 20 14 - 42 mL CV PACS IVSD 1.2(A) 0.6 - 0.9 cm CV PACS LVIDD 2.7(A) 3.8 - 5.2 cm CV PACS LVIDS 1.8(A) 2.2 - 3.5 cm CV PACS LVOT Diameter 1.8 cm CV PACS LVOT Mean Lopez 0.6 m/s CV PACS LVOT Mean Grad 2 mmHg CV PACS LVOT Peak VTI 19.0 cm CV PACS LVOT Peak Lopez 0.9 m/s CV PACS LVOT Peak Gradient 4 mmHg CV PACS LVPWD 1.1(A) 0.6 - 0.9 cm CV PACS MV E' Tissue Velocity Lateral 5 cm/s CV PACS MV E' Tissue Velocity Septal 3 cm/s CV PACS Ejection Fraction (A2C) 65 % CV PACS Ejection Fraction (A4C) 63 % CV PACS Ejection Fraction (BP) 63 % CV PACS LVOT Area 2.5 cm2 CV PACS LVOT Stroke Volume 48 mL CV PACS Left Atrium Minor [place] 7.2 cm CV PACS Left Atrium Major [place] 6.7 cm CV PACS LA Area Sys (A2C) 35 cm2 CV PACS LA Area Sys (A4C) 28 cm2 CV PACS LA Volume (BP) 122 mL CV PACS RA Area 15.8 cm2 CV PACS RA 2D Volume 41 mL CV PACS AV Mean Gradient 5 mmHg CV PACS Ao VTI 32.3 cm CV PACS AV Peak Lopez 1.4 m/s CV PACS AV Peak Gradient 8 mmHg CV PACS AV Area Continuity Equation 1.5 cm2 CV PACS AV Area Peak Velocity 1.7 cm2 CV PACS Aortic Root 3.2 cm CV PACS Ascending Aorta 3.7 cm CV PACS IVC Proximal 1.8 cm CV PACS MR PISA Nyquist Lopez 31 cm/s CV PACS PISA MR Radius 0.70 cm CV PACS MR VTI 166.0 cm CV PACS MR PISA Max Velocity 5.1 m/s CV PACS MR Peak Gradient 102 mmHg CV PACS MV Deceleration [place] 3.0 m/s2 CV PACS E Wave Deceleration Time 351(A) 119 - 242 ms CV PACS MV PHT 103 ms CV PACS MV Peak A Lopez 0.91 m/s CV PACS MV Peak E Lopez 1.07 m/s CV PACS PISA MR EROA 0.19 cm2 CV PACS MV Area PHT 2.1 cm2 CV PACS PISA Regurgitant Volume 32 mL CV PACS PV Acceleration Time 132 ms CV PACS PV Acceleration Time 132 ms CV PACS RV Diastolic Basal Dimension 3.3 2.5 - 4.1 cm CV PACS RV S' 8 cm/s CV PACS TAPSE 23 mm CV PACS TR Peak Velocity 2.48 m/s CV PACS TR Peak Gradient 25 mmHg CV PACS LV ESV Index (A4C) 14 mL/m2 CV PACS LV EDV Index (A4C) 39 mL/m2 CV PACS E/E' Ratio Septal 36 CV PACS E/E' Ratio Averaged 29 CV PACS LVOT Stroke Index 33 mL/m2 CV PACS Relative Wall Thickness ratio 0.81 CV PACS LVOT:AV VTI Index 0.59 CV PACS FS 33 % CV PACS LV Mass 2D 88 g CV PACS Ascending Aorta Index 2.55 cm/m2 CV PACS LVOT flow 153 mL/s CV PACS RA 2D Volume Index 28 mL/m2 CV PACS AGNES Index (VTI) 1.03 cm2/m2 CV PACS AGNES Index (Pk Lopez) 1.17 cm2/m2 CV PACS LVIDD Index 1.86 cm/m2 CV PACS LVIDS Index 1.24 cm/m2 CV PACS Aortic Root Index 2.21 cm/m2 CV PACS AV Velocity Ratio 0.64 CV PACS E/A Ratio 1.2 CV PACS E/E' Ratio Lateral 21 CV PACS LV Systolic Volume Index (BP) 14 mL/m2 CV PACS LV Diastolic Volume Index (BP) 38 mL/m2 CV PACS LA Volume Index (BP) 84 mL/m2 CV PACS LV Mass Index 2D 61 g/m2 CV PACS LV EDV Index (A2C) 37 mL/m2 CV PACS LV ESV Index (A2C) 13 mL/m2 CV PACS BSA 1.46 m2 CV PACS Right Ventricular Peak Systolic Pressure 33 mmHg CV PACS Est. RA Pressure 8 mmHg CV PACS Anatomical Region Laterality Modality Ultrasound Narrative 09/16/2025 4:39 PM EST Left ventricle cavity is small. There is mild concentric hypertrophy. Systolic function is normal with an ejection fraction of 65-70%. There are no regional LV wall motion abnormalities. Indeterminate left ventricular diastolic function. Right ventricle cavity is normal. Right ventricular systolic function is normal. Severe dilated left atrium. Mild mitral regurgitation. Mild tricuspid regurgitation. Right ventricular systolic pressure is normal at 33 mmHg. There are no significant changes compared to previous study from 03/15/2022. Left Ventricle Left ventricle cavity is small. There is mild concentric hypertrophy. Systolic function is normal with an ejection fraction of 65-70%. There are no regional LV wall motion abnormalities. Indeterminate diastolic function. Right Ventricle Right ventricle cavity appears normal. Systolic function is normal. Normal TAPSE (> 17 mm). Abnormal systolic excursion velocity by TDI (<9.5cm/s). Left Atrium Left atrium cavity is severely dilated. Left atrium volume index is severely increased. Right Atrium Right atrium cavity is normal. IVC/SVC Inferior vena cava structure is normal. RA pressure is estimated to be 3 mmHg (IVC diameter <21 mm and decreases >50% during inspiration). Mitral Valve Mitral valve structure is normal. There is mild regurgitation. Mitral stenosis not assessed due to limited exam. Tricuspid Valve Tricuspid valve structure is normal. There is mild regurgitation. There is no significant tricuspid valve stenosis. The right ventricular systolic pressure is normal. The RVSP is estimated at 33 mmHg. Aortic Valve The aortic valve is trileaflet. There is no significant regurgitation. There is no significant stenosis. Pulmonic Valve Visualized portions of the pulmonic valve appear normal. There is trace pulmonic valve regurgitation. No significant pulmonary valve stenosis noted. Ascending Aorta The ascending aorta is (3.7 cm). Pericardium Pericardium appears normal. There is no pericardial effusion. Study Details Overall the study quality was adequate. Study was difficult due to: patient body habitus. Wall Scoring Baseline Score Index: 1.00 The left ventricular wall motion is normal. 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
[2025-09-16 15:05] VITALS: BMI 23.2
--- NOTE | 2025-09-16 15:05 | A.PHYSOV ---
Vital Signs 09/16/25 15:05 Height 4 ft 11 in Weight 115 lb BMI 23.2 Intake Visit Reasons: 3M FUV Intake Note: Patient is an 84 year old female here today for a 3 month follow up for medication. It Security Engineer Required: No It Security Engineer Services: It Security Engineer Offered & Declined It Security Engineer Name: here with daughter Queta Allergies amoxicillin Allergy (Intermediate, Verified 09/16/25 15:07) Swelling azithromycin Allergy (Intermediate, Verified 09/16/25 15:07) Itching levofloxacin Allergy (Intermediate, Verified 09/16/25 15:07) Itching nitrofurantoin Allergy (Intermediate, Verified 09/16/25 15:07) Itching atenolol Allergy (Unknown, Verified 09/16/25 15:07) unknown reaction per daughter HPI Comments Details: Ms. Castro is an 85-year-old female seen in evaluation today for chronic pain management. Patient has undergone epidural injection without relief of her symptoms. She has also undergone bilateral knee cortisone injection as well as glenohumeral joint injection secondary to osteoarthritis. Patient reports that cortisone is becoming less effective. Patient is contracted for narcotic pain management 3 times a day. Patient trialed Vicodin which did help for a period of time. Patient reports that he is becoming less effective. She was subsequently put on oxycodone which she feels is too strong. Patient and her family would like to consider a higher dose of hydrocodone. She has been performing her physician directed home exercise plan and using her medications otherwise as prescribed. [facility] Medical History Anxiety Asthma Back pain Bilateral primary osteoarthritis of knee Cerebral aneurysm Chronic pain syndrome COPD (chronic obstructive pulmonary disease) CVA (cerebral vascular accident) Diabetes Elevated cholesterol GERD (gastroesophageal reflux disease) HTN (hypertension) Myocardial infarction Osteoporosis Pain in unspecified joint Spondylosis without myelopathy or radiculopathy, lumbar region Surgical History Hx of bilateral cataract extraction History of esophagogastroduodenoscopy (EGD) H/O colonoscopy Hx of cholecystectomy Status post carotid endarterectomy Social History Household Members: None Are you a primary direct care specialist to a significant other at home: No Do you presently have visiting nurse or other home services: Yes ([employer]) Patient Tobacco Use Status: Current everyday Tobacco user Tobacco use type: Cigarette Cigarettes Per Day: 20 Years Smoked: 50 Review of Systems Narrative Low back pain, bilateral shoulder pain and knee pain. No incontinence, saddle anesthesia urinary retention. Physical Exam Exam Exam: Bilateral shoulder exam, there is no effusion or deformity. She has 90 degrees of forward flexion and abduction. She has significant crepitance with external and internal rotation. Full range motion of her elbow wrist and hand. Lumbar Spine: Examination of her lumbar spine, there is no visible swelling or deformity. She is tender to lower lumbar facets. She is otherwise nontender. She has full range of motion of the lumbar spine. She does have an increase in pain with facet loading. Special Tests: Lhermittes sign was negative Heel Toe walk is normal Left straight leg raise: Negative Right straight leg raise: Negative Special tests Marina test is negative Ganslen's test is negative SI Joint compression test negative Yessy test negative Piriformis stretch is negative Lower Extremities: Full range of motion bilateral lower extremities. She was tender to the medial aspect of both knees. No effusion. She does have slight valgus deformity. Full range of motion of her knee in flexion-extension. Her ligaments are intact. Neuro: Sensation: Intact to lower extremities bilaterally Strength L2 (Psoas): 5/5 on the left and 5/5 on the right. L3 (Quads): 5/5 on the left and 5/5 on the right. L4 (Ant tibialis): 5/5 on the left and 5/5 on the right. L5 (EHL) 5/5 on the left and 5/5 on the right. S1 (Gastroc): 5/5 on the left and 5/5 on the right. DTR L4: (Patellar) Left 1 Right 1 S1: (Achilles) Left 1 Right 1 Babinski Downgoing No pathologic clonus. No involuntary movement. Vital Signs: BMI result Body Mass Index 23.2 Assessment & Plan Assessment & Plan (1) Lumbar radiculopathy: Code(s): M54.16 - Radiculopathy, lumbar region Category: Medical (2) Lumbar spondylosis: Code(s): M47.816 - Spondylosis without myelopathy or radiculopathy, lumbar region Category: Medical Plan Ms. Castro is a 85-year-old female seen in evaluation today for chronic pain management. We will discontinue Percocet. Start Jordan 7.5 mg p.o. t.i.d.. Patient will continue her home exercise plan and medications otherwise as prescribed. We discussed the benefits of proper nutrition and exercise to maintain a healthy body weight to improve longevity and function. We also discussed the benefits of proper lifting techniques, core strengthening and proper posture. Follow-up in 3 months. Thank you for allowing me to participate in the care of your patient. Medications: New hydrocodone-acetaminophen 7.5-300 mg Partial Fill upon patient request. 1 tab PO TID PRN 84 tabs 0RF pain 28 days M47.816 - Spondylosis without myelopathy or radiculopathy, lumbar region, M54.16 - Radiculopathy, lumbar region Coding Level of Care Code Tele Est Pt Level 3 (94311) Diagnoses Lumbar radiculopathy M54.16 Lumbar spondylosis M47.816
--- OUTSIDE RECORDS SUMMARY | 2025-09-16 23:36 | XMS_ITS | Clinical Summary ---
Author Organization [facility] Address [address] [place] [address] Care Team Providers Care Web Graphic Designer Name Role Phone Unavailable Primary Care Provider Unavailabl e Social History Tobacco Use Types Packs/Day Years Used Date Smoking Tobacco: Never Assessed Comments Unknown Sex and Gender Information Value Date Recorded Sex Assigned at Not on file Legal Sex Female 1:05 PM EDT Gender Identity Not on file Sexual Orientation Not on file Plan of Treatment Health Maintenance Due Date Last Done Comments Advance Care Planning 1940 DTaP/Tdap/Td Vaccines (1 - Tdap) 1958 Pneumococcal Vaccines 50+ (1 of 1 - PCV) 1989 Zoster (Shingles) Vaccine (1 of 2) 1989 RSV Vaccine 50 years and old er and Patients (1 - 1-dose 75+ series) 2014 COVID-19 Vaccine (2023-2 5 season) 2025 Hepatitis B Vaccines Aged Out No long er eligible based on patient's age to complete this topic
--- OUTSIDE RECORDS SUMMARY | 2025-09-16 23:36 | XMS_ITS | Clinical Summary ---
Author Organization [address] [facility] Address [address] [place] [address] Phone Care Team Providers Care Electrical Engineering Professor Name Role Phone Stephanie Justice MD Primary Care Provider [phone] Allergies Active Allergy Reactions Criticality Noted Date Comments Atenolol 01/23/2013 Azithromycin 08/29/2013 Levofloxacin 10/29/2013 Nitrofurantoin 08/29/2013 Oxycodone 06/27/2018 Medications lactose-reduced food (ENSURE COMPLETE ORAL) Take 1 Can by mouth 2 (two) times a day. 023 Active PEG 3350 (GLYCOLAX/RAMESH AX) 4 gram packet Take 17 g by mouth 1 (one) time each day. 023 Active ascorbic acid, vitamin C, 500 mg capsule Take 1 capsule by mouth 1 (one) time each day. Active clotrimazole (LOTRIMIN) 1 % cream Apply topically 2 (two) times a day. 022 Active clotrimazole-be tamethasone (LOTRISONE) 1-0.05 % cream Apply topically 2 (two) times a day. 020 Active cranberry fruit extract (cranberry extract) 250 mg capsule Take 1 capsule by mouth 1 (one) time each day. Active diclofenac (VOLTAREN) 1 % topical gel Apply 4 g topically 2 (two) times a day. 022 Active fluticasone propionate (FLONASE) 50 mcg/actuation nasal spray Administer 2 sprays into each nostril 1 (one) time each day. 018 Active fluticasone furoate-vilante roL (BREO ELLIPTA) 100-25 mcg/dose inhaler Inhale 1 puff by mouth 1 (one) time each day if needed (SHORTNESS OF BREATH). Active gabapentin (NEURONTIN) 300 mg capsule Take 1-2 capsules (300-600 mg total) by mouth 1 (one) time each day. 015 Active lidocaine (LIDODERM) 5 % patch Place 1 patch on the skin 1 (one) time each day at the same time. 022 Active lidocaine-kines iology tape (LidoPure Patch) 5 % combo pack Apply 1 each topically 2 (two) times a day. 024 Active neomycin-bacitr acnZn-polymyxnB 3.5-500-10,000 or-uadj-hrxq ointment 2 (two) times a day. 022 Active nystatin (MYCOSTATIN) 100,000 unit/mL suspension Take by mouth 3 (three) times a day. 023 Active oxymetazoline (No Drip) 0.05 % nasal spray Administer 2 sprays into affected nostril(s) 2 (two) times a day. 024 Active ramelteon (ROZEREM) 8 mg tablet Take 1 tablet (8 mg total) by mouth at bedtime. Active HYDROcodone-isreal taminophen (NORCO) 5-325 mg per tablet Take 1 tablet by mouth 2 (two) times a day. 025 Active sulfamethoxazol e-trimethoprim (BACTRIM DS,SEPTRA DS) 800-160 mg per tablet Take 1 tablet by mouth 2 (two) times a day. 10 tablet 025 Active estradioL (ESTRACE) 0.01 % (0.1 mg/gram) vaginal cream Insert 0.5 g into the vagina 1 (one) time each day. Please place 0.5g (a pea-sized amount) on your finger and place inside the vagina for 2 weeks at night, and then twice a week at night 42.5 g 3 025 Active melatonin 5 mg tablet Take 1 tablet (5 mg total) by mouth at bedtime. 90 tablet 3 025 Active atorvastatin (LIPITOR) 40 mg tablet Take 1 tablet (40 mg total) by mouth 1 (one) time each day. 90 tablet 3 025 Active aspirin 81 mg chewable tablet Chew 1 tablet (81 mg total) 1 (one) time each day. 90 each 3 025 Active cephalexin (KEFLEX) 500 mg capsule Take 1 capsule (500 mg total) by mouth 2 (two) times a day. for 7 days Active oxyBUTYnin XL (DITROPAN-XL) 5 mg 24 hr tablet Take 1 tablet (5 mg total) by mouth 1 (one) time each day. Active pantoprazole (PROTONIX) 20 mg EC tablet Take 1 tablet (20 mg total) by mouth 1 (one) time each day in the morning. Active phenazopyridine (PYRIDIUM) 100 mg tablet Take 1 tablet (100 mg total) by mouth 3 (three) times a day with meals. 024 Active methylPREDNISol one (MEDROL DOSPAK) 4 mg tablet Take 1 tablet (4 mg total) by mouth See administration instructions. 21 tablet Active lactulose (CHRONULAC) solutionIndicat ions:Constipati on, unspecified constipation type TAKE 30 ML BY MOUTH TWICE DAILY 5400 mL 1 Active meloxicam (MOBIC) 7.5 mg tablet Take 1 tablet (7.5 mg total) by mouth 1 (one) time each day after lunch. Active prednisoLONE acetate (PRED FORTE) 1 % ophthalmic suspension Administer 1 drop into both eyes 3 (three) times a day. Active famotidine (PEPCID) 20 mg tablet Take 1 tablet (20 mg total) by mouth 1 (one) time each day. Active albuterol HFA (PROAIR HFA ; PROVENTIL HFA ; VENTOLIN HFA) 90 mcg/actuation inhaler Inhale 2 puffs by mouth every 6 (six) hours if needed for wheezing or shortness of breath. Active amoxicillin-cla vulanate (AUGMENTIN) 875-125 mg per tablet Take 1 tablet by mouth 2 (two) times a day. for 7 days Active cefdinir (OMNICEF) 300 mg capsule Take 1 capsule (300 mg total) by mouth 2 (two) times a day. for 7 days Active fluticasone furoate-vilante roL (Breo Ellipta) 100-25 mcg/dose inhaler Inhale 1 puff by mouth 1 (one) time each day. 60 each 11 025 2025 Active albuterol 2.5 mg /3 mL (0.083 %) nebulizer solutionIndicat ions:Centrilobu lar emphysema (CMS/HCC V24, CMS/HCC V28) Take 3 mL (2.5 mg total) by nebulization 3 (three) times a day if needed for shortness of breath or wheezing. 90 mL 11 Active spironolactone (ALDACTONE) 25 mg tablet 022 Active oxyCODONE (ROXICODONE) 5 mg immediate release tablet Take 1 tablet (5 mg total) by mouth. 025 Active fentaNYL (DURAGESIC) 25 mcg/hr 023 Active doxycycline hyclate (VIBRA-TABS) 100 mg tablet 024 Active docusate sodium (COLACE) 100 mg capsule 023 Active buprenorphine (BUTRANS) 5 mcg/hour 024 Active omeprazole (PriLOSEC) [address] capsule Take 1 capsule (40 mg total) by mouth 2 (two) times a day. Do not crush or chew. 60 each 1 025 2025 Active loratadine (CLARITIN) 10 mg tablet TAKE 1 TABLET BY MOUTH DAILY 30 tablet 1 Active acetaminophen (TYLENOL) 500 mg tablet TAKE 1 TABLET BY MOUTH EVERY 6 HOURS NEEDED FOR PAIN 60 tablet 1 025 Active DULoxetine (CYMBALTA) [address] capsule TAKE 1 CAPSULE BY MOUTH DAILY 90 capsule 1 025 Active amLODIPine (NORVASC) 10 mg tablet TAKE 1 TABLET(10 MG) BY MOUTH 1 TIME EACH DAY 90 tablet 1 12/05/2 025 Active amLODIPine (NORVASC) 10 mg tablet Take 1 tablet (10 mg total) by mouth 1 (one) time each day. 90 tablet 1 025 2024 Discontinued DULoxetine (CYMBALTA) [address] capsule TAKE 1 CAPSULE BY MOUTH DAILY 90 capsule 1 025 2024 Discontinued Active Problems Problem Noted Date Diagnosed Date Smoking greater than 40 pack years 03/26/2025 URI, acute 03/25/2025 Urinary frequency 03/08/2025 Mixed hyperlipidemia 09/28/2024 Assessment & Plan (03/07/2025 11:33 AM EDT): Last lipid panel reviewed, not well-controlled, LDL 113. She has not been taking atorvastatin as prescribed. I have asked her to restart this and update a fasting lipid panel after 8 weeks. Continue with efforts to follow a low fat, heart healthy diet, increase exercise and maintain a healthy weight to maximize risk reduction. Major depressive disorder, recurrent, in full re mission 05/21/2024 Unsteady gait 11/14/2023 Recurrent urinary tract infection 09/07/2023 Chronic pain 02/19/2023 Peripheral angiopathy due to type 2 diabetes tatianna litus 10/29/2022 Dizziness 02/04/2022 Overview (11/30/2024): Last Assessment & Plan: She has a bruit in the right neck. We will arrange carotid duplex. We will arrange 24-hour Holter monitor. We will discontinue diuretics. Cystitis 02/02/2022 NSTEMI (non-ST elevated myocardial infarction) 0 02/02/2022 Palpitations 02/02/2022 Weakness 02/02/2022 Chronic obstructive pulmonary disease 06/27/2018 Coronary artery disease invo lving [place] coronary artery of [place] heart without angina pectoris 06/27/2018 Overview (03/07/2025): >>OVERVIEW FOR CORONARY ATHEROSCLEROSIS WRITTEN ON 11/30/2024 12:03 PM BY ALEX WRAY RN [place]; Stent Last Assessment & Plan: Stable overall. Excellent lipid profile. Unfortunately, still smokes and not willing to quit. We will continue current regimen. Assessment & Plan (03/07/2025 11:35 AM EDT): Patient has a history of multivessel coronary artery disease s/p PCI to the circumflex and OM1 in 2016. Pharmacological nuclear stress test in May 2023 was negative for ischemia. She denies anginal symptoms. I have asked her to restart aspirin and atorvastatin for secondary prevention. I will update an echocardiogram to reassess cardiac function and structures. For any chest pain/discomfort, especially if associated with exertion, that lasts longer than 10-15 minutes and does not resolve with rest or sublingual nitroglycerin, patient has been encouraged to seek immediate medical attention by calling 911. Hypertension 05/05/2018 Overview (11/30/2024): Last Assessment & Plan: Patient's blood pressure is well controlled in office. Continue calcium channel hakan and aldosterone blockade. Assessment & Plan (03/07/2025 11:34 AM EDT): Blood pressure is under reasonable control in the office today at 138/60. Continue on amlodipine as prescribed. Hyperlipidemia 05/05/2018 Overview (03/22/2025): Last Assessment & Plan: Patient is lipid profile somewhat above goal of <70. Given her age, it is reasonable to remain on her current moderate intensity statin and follow along. Depression 01/18/2018 Constipation 11/22/2017 GERD (gastroesophageal reflux disease) 8 Insomnia 06/29/2017 Asthma 10/26/2016 Type 2 diabetes mellitus without complication Overview (07/10/2025): 07/10/25 Regulatory IMO Update Varicose veins of both lower extremities 014 Vitamin D deficiency 01/16/2014 Anxiety 07/03/2013 Encounters Date Type Department Care Team Description 09/16/2025 10:00 AM EST Ancillary Procedure [facility] - [address] [place] [address] Coronary artery disease involving [place] coronary artery of [place] heart without angina pectoris 09/10/2025 Telephone [facility] Cardiology [facility] - [address] [place] [phone] Kia Kilgore MA 09/09/2025 Results Follow-Up [facility] - [address] [place] [address] Hayley Pope NP 09/06/2025 10:00 AM EST Lab Draw Station - [facility] [address] [place] [phone] Coronary artery disease involving [place] coronary artery of [place] heart without angina pectoris 08/18/2025 Results Follow-Up Gastroenterology - [address] [facility] [address] [place] [phone] Lashay Ortega PA 08/07/2025 10:22 AM EDT - 08/07/2025 11:59 PM EDT Hospital Encounter [facility] CT Scan [address] [place] [phone] Weight loss; Gastroesophageal reflux disease, unspecified whether esophagitis present; Constipation, unspecified constipation type Discharge Disposition: Home or Self Care 08/06/2025 10:30 AM EDT Office Visit Pulmonology - [place] [address] [facility] [address] [place] [phone] Derek Chavez MD Centrilobular emphysema (CMS/HCC V24, CMS/HCC V28) (Primary Dx); Localized osteoporosis without current pathological fracture; Cigarette nicotine dependence with other nicotine-induced disorder 08/01/2025 12:00 PM EDT Ancillary Procedure [facility]iology [facility] - [address] [place] [phone] PAD (peripheral artery disease) (CMS/HCC V24) 08/01/2025 Results Follow-Up Vascular Surgery - [place] [address] [place] [phone] Beatriz Hernandez PA 07/25/2025 10:30 AM EDT Office Visit Gastroenterology - [place] [address] [facility] [address] [place] [address] Lashay Ortega PA Weight loss (Primary Dx); Gastroesophageal reflux disease, unspecified whether esophagitis present; Constipation, unspecified constipation type 07/18/2025 8:27 AM EDT - 07/18/2025 11:59 PM EDT Hospital Encounter [facility] CT Scan [address] [place] [phone] Centrilobular emphysema (CMS/HCC V24, CMS/HCC V28); Weight loss Discharge Disposition: Home or Self Care 07/16/2025 10:15 AM EDT Office Visit Pulmonology - [place] [address] [facility] [address] [place] [phone] Derek Chavez MD Weight loss (Primary Dx); Centrilobular emphysema (CMS/HCC V24, CMS/HCC V28); Localized osteoporosis without current pathological fracture; Cigarette nicotine dependence with other nicotine-induced disorder 06/21/2025 10:16 AM EDT - 06/21/2025 12:11 PM EDT Emergency [facility] Emergency [address] [place] [phone] Ezra Mane MD COVID-19 (Primary Dx); Other fatigue Discharge Disposition: Home or Self Care from Last 3 Months Immunizations Immunization Administration Dates Next Due Influenza Quadravalent, 0.5ml (Fluad) 65yo and o lder 07/31/2020 Influenza trivalent, 0.5mL (Fluad) 65yo and olde r 09/16/2023 Influenza trivalent, 0.5mL ( Fluzone High-dose) 65yo and older 09/16/2023 Pneumococcal conjugate 13 va lent (Prevnar 13, PCV13) 2mo and older 06/24/2015 Pneumococcal polysaccharide 23 valent (Pneumovax 23) 2yo and older 06/16/2016 Surgical History Surgery Date Site/Laterality Comments CHOLECYSTECTOMY PROCEDURE: HISTORICAL CHOLECYSTECTOMY OTHER SURGICAL HISTORY PROCEDURE: HISTORY OTHER; COMMENT: Brain surgery OTHER SURGICAL HISTORY 10/27/2022 Left PROCEDURE: [place] TEAEC W/PATCH GRF CAROTID VERTB SUBCLAV NECK INC; COMMENT: w/bovine pericardial patch angioplasty Medical History Medical History Date Comments History of CVA (cerebrovascu lar accident) 04/16/2013 DX:History of CVA (cerebrova scular accident) Anxiety 07/03/2013 DX:Anxiety Asthma 10/26/2016 DX:Asthma Chronic obstructive pulmonar y disease (CMS/[facility] V24, CMS/HCC V28) 06/27/2018 DX:Chronic obstructive pulm onary disease (HCC) Constipation 11/22/2017 DX:Constipation Depression 01/18/2018 DX:Depression GERD (gastroesophageal reflu x disease) 11/22/2017 DX:GERD (gastroesophageal re flux disease) Hyperlipidemia 05/05/2018 DX:Hyperlipidemi a Hypertension 05/05/2018 DX:Hypertension Insomnia 06/29/2017 DX:Insomnia Type 2 diabetes mellitus wit hout complication 04/18/2014 DX:Type 2 diabetes mellitus without complication (HCC) Varicose veins 04/18/2014 DX:Varicose vein s Vitamin D deficiency 01/16/2014 DX:Vitamin D deficiency Tobacco abuse disorder DX:Tobacc o abuse disorder Cervical spondylarthritis DX:Cer vical spondylarthritis Family History Medical History Relation Name Comments Ovarian cancer Daughter Queta Breast cancer Sister 1 Breast cancer Sister 2 Relation Name Status Comments Daughter Queta Alive Sister 1 Sister 2 Social History Tobacco Use Types Packs/Day Years [...] Orientation Straight 10/30/2024 1: 47 PM EST Last Filed Vital Signs Vital Sign Reading Time Taken Comments Blood Pressure 131/74 09/16/2025 10:30 AM EST Pulse 73 08/06/2025 10:26 AM EDT Temperature 36.4 C (97.5 F) 08/06/2025 10:26 AM EDT Respiratory Rate 18 07/16/2025 9:57 AM EDT Oxygen Saturation 99% 08/06/2025 10:26 AM EDT Inhaled Oxygen Concentration - - Weight 51.3 kg (113 lb) 09/16/2025 10:30 AM EST Height 149.9 cm (4' 11 ) 09/16/2025 10:30 AM EST Body Mass Index 22.82 09/16/2025 10:30 AM EST Plan of Treatment Upcoming Encounters Date Type Department Care Team (Late st Contact Info) Description 09/18/2025 10:40 AM EST Office Visit [facility] - [facility] [address] [facility] [address] [place] [phone] Hayley Pope NP [address] [place] [address] [address] [place] [address] 10/11/2025 2:00 PM EST Office Visit Vascular Surgery - [place] [address] [facility] [address] [place] [phone] Cecilia Farley PA [address] [place] [phone] 11/06/2025 10:30 AM EST Office Visit Pulmonology - [place] [address] [facility] [address] [place] [address] Derek Chavez MD [address] [place] [phone] 01/30/2026 9:15 AM EDT Ancillary Procedure [facility] - [facility] [address] [place] [phone] 02/19/2026 10:30 AM EDT Office Visit Gastroenterology - [address] [place] [address] [facility] [address] [place] [phone] Lashay Ortega PA [address] [facility] [address] [place] [address] Health Maintenance Due Date Last Done Comments Diabetes: Annual Foot Exam 1950 DTaP,Tdap,and Td Vaccines (1 - Tdap) 1958 Zoster Vaccines (1 of 2) 1989 RSV Immunization Adult Patients (1 - 1-dose 75+ series) 2014 Falls Risk Assessment 09/18/2022 Medicare Annual Wellness Visit 09/18/2022 Social Influencers of Health Screening 09/18/2022 Diabetes: Annual Retina Eye Exam 06/28/2024 06/28/2023 Diabetes: Blood Sugar Control Test (HGBA1C) 09/28/2024 03/29/2024 Depression Screening 10/10/2024 COVID-19 Vaccine ( season) 2025 12/02/2021, 01/13/2021, 12/23/2020 Influenza Vaccine (#1) 2025 , 09/16/2023, 07/31/2020 Hypertension/CHF/CAD Annual BMP Blood Test 06/21/2026 06/21/2025, 05/20/2025, 12/04/2024, Additional history exists Cholesterol Screening (Lipid Panel) 09/06/2030 09/06/2025, 03/29/2024 Osteoporosis Screening (Bone Density Screening) 03/16/2032 03/16/2022 Pneumococcal Vaccine: 50+ Years Completed 06/16/2016, 06/24/2015 HIB Vaccines Aged Out No longer eligi ble based on patient's age to complete this topic HPV Vaccines Aged Out No longer eligi ble based on patient's age to complete this topic Hepatitis A Vaccines Aged Out No long er eligible based on patient's age to complete this topic Hepatitis B Vaccines Aged Out No long er eligible based on patient's age to complete this topic IPV Vaccines Aged Out No longer eligi ble based on patient's age to complete this topic MMR Vaccines Aged Out No longer eligi ble based on patient's age to complete this topic Meningococcal ACWY Vaccine Aged Out N o longer eligible based on patient's age to complete this topic Meningococcal B Vaccine Aged Out No l onger eligible based on patient's age to complete this topic RSV Immunization Patients Under 20 months Aged Out No longer eligible based on patient's age to complete this topic Varicella Vaccines Aged Out No longer eligible based on patient's age to complete this topic Procedures Procedure Name Priority Date/Time Associated Diagnosis Comments TRANSTHORACIC ECHOCARDIOGRAM (TTE) COMPLETE Routine 09/16/2025 10:35 AM EST Coronary artery disease involving [place] coronary artery of [place] heart without angina pectoris LIPID PANEL WITH REFLEX TO DIRECT LDL Routine 09/06/2025 10:01 AM EST Coronary artery disease involving [place] coronary artery of [place] heart without angina pectoris CT ABDOMEN PELVIS W CONTRAST Routine 08/07/2025 10:35 AM EDT Weight loss Gastroesophageal reflux disease, unspecified whether esophagitis present Constipation, unspecified constipation type VAS US DUPLEX LOWER EXT ARTERIES BILAT WITH VIKY Routine 08/01/2025 12:23 PM EDT PAD (peripheral artery disease) (CMS/HCC V24) CT CHEST WO CONTRAST Routine 07/18/2025 8:40 AM EDT Centrilobular emphysema (CMS/HCC V24, CMS/HCC V28) Weight loss ECG ANNOTATED 06/24/2025 XR CHEST 2 VIEWS STAT 06/21/2025 11:2 7 AM EDT ECG 12-LEAD STAT 06/21/2025 10:43 AM EDT MOSS URINE CULTURE TUBE STAT 06/21/2025 10:15 AM EDT URINALYSIS WITH REFLEX MICROSCOPIC AND CULTURE STAT 06/21/2025 10:15 AM EDT URINALYSIS WITH REFLEX MICROSCOPIC AND CULTURE STAT 06/21/2025 10:15 AM EDT CBC WITH AUTO DIFFERENTIAL STAT 06/21/2025 10:06 AM EDT TROPONIN I HIGH SENSITIVITY Timed 06/21/2025 10:06 AM EDT MAGNESIUM STAT 06/21/2025 10:06 AM EDT BASIC METABOLIC PANEL STAT 06/21/2025 10:06 AM EDT CBC AND DIFFERENTIAL STAT 06/21/2025 10:06 AM EDT [id number], RSV, FLU A AND B QUALITATIVE RT-PCR, INTERNAL LAB STAT 06/21/2025 10:04 AM EDT [facility] DEXA AXIAL SKELETON Routine 03/16/2022 11:36 AM EDT Encounter for screening for osteoporosis from Last 3 Months or Most Recently Relevant to Health Maintenance Results * (ABNORMAL) TRANSTHORACIC ECHOCARDIOGRAM (TTE) COMPLETE [...] 48 mL CV PACS Left At[facility] Minor [place] 7.2 cm CV PACS Left Atrium Major [place] 6.7 cm CV PACS LA Area Sys [...] Gradient 102 mmHg CV PACS MV Deceleration [place] 3.0 m/s2 CV PACS E Wave Deceleration [...] The left ventricular wall motion is normal. us Hayley Pope NP CV ECHO PROCEDURES Final Result * Lipid panel with reflex to direct LDL (09/06/2025 10:01 AM EST) Cholesterol 147 0 - 200 mg/dL 09/06/2025 2:03 PM [facility] Triglycerides 110 0 - 150 mg/dL 09/06/2025 2:03 PM [facility] HDL 56 >=40 mg/dL 09/06/2025 2:03 PM [facility] LDL Calculated 69 0 - 100 mg/dL 09/06/2025 2:03 PM [facility] Comment:Estimated LDL Calcul ated using equation: Total cholesterol - HDL cholesterol - (Triglycerides/5) VLDL Cholesterol Manjit 22 mg/dL 09/06/2025 2:03 PM [facility] Non HDL Chol. (LDL+VLDL) 91 <145 mg/dL 09/06/2025 2:03 PM [facility] Chol/HDL Ratio 2.6 0.0 - 4.4 09/06/2025 2:03 PM [facility] Blood Venous blood specimen / Unknown Venipuncture / Unknown 09/06/2025 10:01 AM EST 09/06/2025 10:01 AM EST us Hayley Pope NP LAB BLOOD ORDERABLES Final Resu lt [facility] [address] [place] [address], * CT Abdomen Pelvis w Contrast (08/07/2025 10:35 AM EDT) Anatomical Region Laterality Modality Body Computed Tomogra phy 08/12/2025 10:1 6 AM EST Impressions 08/12/2025 10:24 AM EST 1. Clustered centrilobular nodules in the central right lower lobe of the lung suggesting a focal small airways infectious/inflammatory process. 2. Circumferential thickening of the distal esophagus. This is more likely to represent esophagitis than neoplastic disease but is nonspecific. 3. Mild hepatic steatosis. -------- FINAL REPORT -------- Dictated By: Hayden Stanford Dictated Date: 08/12/2025 10:16 ET Assigned Physician: Hayden Stanford Reviewed and Electronically Signed By: Hayden Stanford Signed Date: 08/12/2025 10:24 ET Workstation ID: [id number] Transcribed By: Self Edit Transcribed Date: 08/12/2025 10:16 ET Narrative 08/12/2025 10:24 AM EST PROCEDURE: Contrast enhanced CT of the abdomen and pelvis. HISTORY: wt loss, constipation. COMPARISON: 07/26/2024. TECHNIQUE: Contrast-enhanced CT of the abdomen and pelvis with coronal and sagittal reformats. IV contrast dose: 90 mL [id number]. Dose length product: 520 mGy-cm. FINDINGS: Lung bases: Mild segmental bronchial wall thickening in both lower lobes with cluster centrilobular nodules in the central right lower lobe suggesting a small airways infectious/inflammatory process. Cardiac: Moderate cardiomegaly and mild coronary artery calcification. Liver: Mild steatosis. No focal lesion. Portal veins are patent. Biliary: Cholecystectomy. Prominence of the common duct and minimal prominence of the intrahepatic ducts, as is often seen in this postoperative setting secondary to a reservoir effect. No visible ductal filling defect. Pancreas: Mild generalized parenchymal atrophy. Spleen: Normal. Adrenal glands: Normal. Kidneys: Bilateral cortical cysts. The largest is exophytic from the upper interpolar left kidney and measures up to 5 cm. Normal appearance of the ureters. Retroperitoneum: No mass or adenopathy. Abdominal vasculature: Extensive diffuse calcified atherosclerotic plaque. Bowel/mesentery: The distal esophagus appears thickened. No obstruction or adenopathy. No mass or ascites. Numerous sigmoid diverticula. Normal appendix. Abdominal wall: There is a subcutaneous nodule in the low right anterior pelvis, likely an epidermal inclusion cyst. Pelvic nodes: No adenopathy. Pelvic organs: Hysterectomy. Bones: Diffusely demineralized. Degenerative changes of the spine, hips, SI joints, and pubic symphysis. Mild anterolisthesis at L4-5 and L5-S1. Procedure Note Hayden Stanford MD - 08/12/2025 PROCEDURE: Contrast enhanced CT of the abdomen and pelvis. HISTORY: wt loss, constipation. COMPARISON: 07/26/2024. TECHNIQUE: Contrast-enhanced CT of the abdomen and pelvis with coronal andsagittal reformats. IV contrast dose: 90 mL ISOVUE-370. Dose length product: 520 mGy-cm. FINDINGS: Lung bases: Mild segmental bronchial wall thickening in both lower lobeswith cluster centrilobular nodules in the central right lower lobesuggesting a small airways infectious/inflammatory process. Cardiac: Moderate cardiomegaly and mild coronary artery calcification. Liver: Mild steatosis. No focal lesion. Portal veins are patent. Biliary: Cholecystectomy. Prominence of the common duct and minimalprominence of the intrahepatic ducts, as is often seen in thispostoperative setting secondary to a reservoir effect. No visible ductalfilling defect. Pancreas: Mild generalized parenchymal atrophy. Spleen: Normal. Adrenal glands: Normal. Kidneys: Bilateral cortical cysts. The largest is exophytic from theupper interpolar left kidney and measures up to 5 cm. Normal appearanceof the ureters. Retroperitoneum: No mass or adenopathy. Abdominal vasculature: Extensive diffuse calcified atheroscleroticplaque. Bowel/mesentery: The distal esophagus appears thickened. No obstructionor adenopathy. No mass or ascites. Numerous sigmoid diverticula. Normalappendix. Abdominal wall: There is a subcutaneous nodule in the low right anteriorpelvis, likely an epidermal inclusion cyst. Pelvic nodes: No adenopathy. Pelvic organs: Hysterectomy. Bones: Diffusely demineralized. Degenerative changes of the spine, hips,SI joints, and pubic symphysis. Mild anterolisthesis at L4-5 and L5-S1. IMPRESSION: 1. Clustered centrilobular nodules in the central right lower lobe of thelung suggesting a focal small airways infectious/inflammatory process. 2. Circumferential thickening of the distal esophagus. This is morelikely to represent esophagitis than neoplastic disease but isnonspecific. 3. Mild hepatic steatosis. -------- FINAL REPORT -------- Dictated By: Hayden Stanford Dictated Date: 08/12/2025 10:16 ET Assigned Physician: Hayden Stanford Reviewed and Electronically Signed By: Hayden Stanford Signed Date: 08/12/2025 10:24 ET Workstation ID: [id number] Transcribed By: Self Edit Transcribed Date: 08/12/2025 10:16 ET us Lashay BUITRAGO IMG CT PROCEDURES Final Resul t * Vascular US duplex lower extremity arteries bilateral with VIKY (08/01/2025 12:23 PM EDT) Left Dist External Iliac PSV 97 cm/s [facility] Left Prox External Iliac PSV 70 cm/s [facility] Left AT dist sys PSV 31 cm/s [facility] Left AT mid sys PSV 60 cm/s [facility] Left AT prox sys PSV 50 cm/s [facility] Left HAND COPER prox sys PSV 125 cm/s [facility] Left mid peroneal sys PSV 9 cm/s [facility] Left popliteal dist sys PSV 48 cm/s [facility] Left popliteal prox sys PSV 53 cm/s [facility] Left PT dist sys PSV 0 cm/s [facility] Left PT mid sys PSV 51 cm/s [facility] Left PT prox sys PSV 26 cm/s [facility] Left super femoral dist sys PSV 45 cm/s [facility] Left super femoral mid sys PSV 276 cm/s [facility] LAB Left super femoral prox sys PSV 0 cm/s [facility] Right Dist External Iliac PSV 152 cm/s [facility] Right Prox External Iliac PSV 123 cm/s [facility] Right AT dist sys PSV 0 cm/s [facility] Right AT mid sys PSV 86 cm/s [facility] Right AT prox sys PSV 46 cm/s [facility] Right HAND COPER prox sys PSV 143 cm/s [facility] Right mid peroneal sys PSV 53 cm/s [facility] Right popliteal dist sys PSV 79 cm/s [facility] Right popliteal prox sys PSV 106 cm/s [facility] Right PT dist sys PSV 27 cm/s [facility] Right PT mid sys PSV 50 cm/s [facility] Right PT prox sys PSV 191 cm/s [facility] Right super femoral dist sys PSV 93 cm/s [facility] Right super femoral mid sys PSV 103 cm/s [facility] Right super femoral prox sys PSV 406 cm/s [facility] Right profunda sys PSV 115 cm/s [facility] Left profunda sys PSV 219 cm/s [facility] Right arm BP 138 mmHg [facility] Left arm BP 122 mmHg [facility] Left posterior tibial 69 mmHg [facility] Left IVKY 0.50 [facility] Left toe pressure 51 mmHg [facility] Left TBI 0.37 [facility] Anatomical Region Laterality Modality Vascular, Abdomen Ultrasound Narrative 08/01/2025 3:17 PM EDT Right lower extremity: There is evidence of a 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 Right: VIKY noncompressible. TBI noncompressible. Normal amplitude PVR waveform at the ankle. Normal amplitude digit PPG waveform. Biphasic flow to the level of the superficial femoral artery. Tibial vessels have monophasic or absent flow. Mild inflow arterial occlusive disease. 50-99% superficial femoral artery stenosis. Mild to moderate tibial arterial occlusive disease with occlusion of the anterior tibial artery. Left: VIKY 0.50. TBI 0.37. Unreadable PVR waveform at the ankle. Decreased amplitude digit PPG waveform. Triphasic flow in the common and deep femoral artery with no flow in the proximal superficial femoral artery. Monophasic waveforms thereafter. No significant inflow arterial occlusive disease. 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 Reconstitution of the mid superficial femoral artery. 20-49% popliteal artery stenosis. Mild to moderate relative occlusive disease. Occlusion of distal posterior tibial artery. Right VIKY Right BP= 138/68 Right PT, DP, and digit are noncompressible. Left VIKY Left BP= 122/70 Left DP is noncompressible. Right Lower Arterial Duplex The distal external iliac artery has biphasic flow. The common femoral artery has biphasic flow. The profunda femoris artery has biphasic flow. The proximal superficial femoral artery is turbulent. The proximal superficial femoral artery has triphasic flow. The mid superficial femoral artery has triphasic flow. The distal superficial femoral artery has triphasic flow. The proximal popliteal artery has monophasic flow. The distal popliteal artery has triphasic flow. 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 The proximal anterior tibial artery has monophasic flow. The mid anterior tibial artery has monophasic flow. The distal anterior tibial artery has absent flow. The proximal posterior tibial artery is turbulent. The proximal posterior tibial artery has monophasic flow. The mid posterior tibial artery has monophasic flow. The distal posterior tibial artery has monophasic flow. The mid peroneal artery has monophasic flow. Left Lower Arterial Duplex The distal external iliac artery has triphasic flow. The common femoral artery has triphasic flow. The profunda femoris artery has triphasic flow. The proximal superficial femoral artery has absent flow. The mid superficial femoral artery is turbulent. The mid superficial femoral artery has monophasic flow. The distal superficial femoral artery has monophasic flow. The popliteal artery has monophasic flow. The anterior tibial artery has monophasic flow. The proximal posterior tibial artery has monophasic flow. The mid posterior tibial artery has monophasic flow. The distal posterior tibial artery has absent flow. The mid peroneal artery has dampened monophasic flow. Cecilia BUITRAGO CV VASCULAR PROCEDURES Final R esult * CT Chest wo Contrast (07/18/2025 8:40 AM EDT) Anatomical Region Laterality Modality Body Computed Tomogra phy 07/25/2025 4:22 PM EDT Impressions 07/25/2025 4:35 PM EDT Motion limits the exam. No findings suspicious for primary lung cancer or extensive metastatic disease. Small opacities in the right lower lobe are likely related to inspissated material within airways. Enlarged heart. Severe atherosclerosis. -------- FINAL REPORT -------- Dictated By: Hansel Berry Dictated Date: 07/25/2025 16:22 ET Assigned Physician: Hansel Berry Reviewed and Electronically Signed By: Hansel Berry Signed Date: 07/25/2025 16:35 ET Workstation ID: [id number] Transcribed By: Self Edit Transcribed Date: 07/25/2025 16:22 ET Narrative 07/25/2025 4:35 PM EDT EXAMINATION: CT CHEST WITHOUT CONTRAST CLINICAL INFORMATION: Weight loss. Dyspnea on exertion. Lifelong smoker. COMPARISON: Portions of previous 09/14/24 TECHNIQUE: Multidetector CT. Examination of the chest. Examination of the chest without IV contrast. Reformatting in the coronal and sagittal planes. DLP: 370 mGy-cm Dose optimization was performed including the use of low-dose iterative reconstruction technique with automatic exposure control based on patient size. Type of contrast: None Volume of IV contrast: None Volume of contrast discarded: 0 mL FINDINGS: Motion limits detail. LUNG: No suspicious abnormality of the trachea or mainstem bronchi. There are some small densities in the medial right lower lobe. I suspect this is related to inspissated material within small airways but motion precludes full characterization. Aly image-4/139 Unchanged apical opacities are likely postinflammatory. There are no suspicious masses which might account for weight loss. MEDIASTINUM: No definite adenopathy. The region of the distal esophagus is not well evaluated. CARDIAC: The heart is enlarged. The left atrium is dilated. There is calcification of the mitral annulus. CORONARY CALCIFICATION: Prior coronary stenting. Severe arterial calcifications including the thoracic aorta and origins of great vessels. There are likely surgical clips in the left neck. VASCULAR: The central pulmonary arteries are prominent. PLEURA: There is no pleural fluid or pneumothorax AXILLA/CHEST WALL: There are no enlarged axillary lymph nodes. No chest wall mass demonstrated VISUALIZED UPPER ABDOMEN: Partially included probable left renal cyst. Extensive arterial calcifications. MUSCULOSKELETAL: No suspicious focal bony lesion. . There is calcification and fluid associated with the right glenohumeral joint. There is atrophy of the rotator cuff muscles on the left. There are degenerative changes in the spine. Procedure Note Hansel Berry MD - 07/25/2025 EXAMINATION: CT CHEST WITHOUT CONTRAST CLINICAL INFORMATION: Weight loss. Dyspnea on exertion. Lifelong smoker. COMPARISON: Portions of previous 09/14/24 TECHNIQUE: Multidetector CT. Examination of the chest. Examination of the chest without IV contrast. Reformatting in the coronal and sagittal planes. DLP: 370 mGy-cm Dose optimization was performed including the use of low-dose iterativereconstruction technique with automatic exposure control based on patientsize. Type of contrast: None Volume of IV contrast: None Volume of contrast discarded: 0 mL FINDINGS: Motion limits detail. LUNG: No suspicious abnormality of the trachea or mainstem bronchi. There are some small densities in the medial right lower lobe. I suspectthis is related to inspissated material within small airways but motionprecludes full characterization. Aly image-139 Unchanged apical opacities are likely postinflammatory. There are no suspicious masses which might account for weight loss. MEDIASTINUM: No definite adenopathy. The region of the distal esophagusis not well evaluated. CARDIAC: The heart is enlarged. The left atrium is dilated. There iscalcification of the mitral annulus. CORONARY CALCIFICATION: Prior coronary stenting. Severe arterialcalcifications including the thoracic aorta and origins of great vessels.There are likely surgical clips in the left neck. VASCULAR: The central pulmonary arteries are prominent. PLEURA: There is no pleural fluid or pneumothorax AXILLA/CHEST WALL: There are no enlarged axillary lymph nodes. No chestwall mass demonstrated VISUALIZED UPPER ABDOMEN: Partially included probable left renal cyst.Extensive arterial calcifications. MUSCULOSKELETAL: No suspicious focal bony lesion. . There iscalcification and fluid associated with the right glenohumeral joint.There is atrophy of the rotator cuff muscles on the left. There aredegenerative changes in the spine. IMPRESSION: Motion limits the exam. No findings suspicious for primary lung cancer or extensive metastaticdisease. Small opacities in the right lower lobe are likely related to inspissatedmaterial within airways. Enlarged heart. Severe atherosclerosis. -------- FINAL REPORT -------- Dictated By: Hansel Berry Dictated Date: 07/25/2025 16:22 ET Assigned Physician: Hansel Berry Reviewed and Electronically Signed By: Hansel Berry Signed Date: 07/25/2025 16:35 ET Workstation ID: [id number] Transcribed By: Self Edit Transcribed Date: 07/25/2025 16:22 ET Derek Chavez MD IMG CT PROCEDURES Final Resu lt * ECG-Annotated (06/24/2025) Provider Onbase ECG ORDERABLES Final Result * XR Chest 2 Views (06/21/2025 11:27 AM EDT) Anatomical Region Laterality Modality Body Radiographic Velia ging 06/21/2025 11:4 0 AM EDT Impressions 06/21/2025 11:40 AM EDT FINDINGS/IMPRESSION: Cardiac silhouette is stably enlarged. No pneumonia or pulmonary edema. No pleural effusion or pneumothorax. Degenerative changes seen throughout the bones. Left neck surgical clips are unchanged. -------- FINAL REPORT -------- Dictated By: MATEUS SILVA Dictated Date: 06/21/2025 11:40 ET Assigned Physician: MATEUS SILVA Reviewed and Electronically Signed By: MATEUS SILVA Signed Date: 06/21/2025 11:40 ET Workstation ID: [id number] Transcribed By: Self Edit Transcribed Date: 06/21/2025 11:40 ET Narrative 06/21/2025 11:40 AM EDT XR CHEST 2 VIEWS INDICATION: Chest pain TECHNIQUE: XR CHEST 2 VIEWS COMPARISON: 05/20/2025 Procedure Note Mateus Silva MD - 06/21/2025 XR CHEST 2 VIEWS INDICATION: Chest pain TECHNIQUE: XR CHEST 2 VIEWS COMPARISON: 05/20/2025 IMPRESSION: FINDINGS/IMPRESSION: Cardiac silhouette is stably enlarged. No pneumoniaor pulmonary edema. No pleural effusion or pneumothorax. Degenerativechanges seen throughout the bones. Left neck surgical clips areunchanged. -------- FINAL REPORT -------- Dictated By: MATEUS SILVA Dictated Date: 06/21/2025 11:40 ET Assigned Physician: MATEUS SILVA Reviewed and Electronically Signed By: MATEUS SILVA Signed Date: 06/21/2025 11:40 ET Workstation ID: [id number] Transcribed By: Self Edit Transcribed Date: 06/21/2025 11:40 ET Ezra Mane MD IMG XR PROCEDURES Final Result * ECG 12 lead (06/21/2025 10:43 AM EDT) [facility] Ventricular Rate ECG 70 BPM GEMUSE Atrial Rate 280 BPM GEMUSE QRS Duration 74 ms GEMUSE Q-T Interval 402 ms GEMUSE QTc 434 ms GEMUSE P Wave [place] 92 degrees GEMUSE R [place] -24 degrees GEMUSE T [place] 6 degrees GEMUSE ECG Interpretation Atrial flutter with 4:1 A-V conduction Nonspecific ST abnormality Abnormal ECG When compared with ECG of 20-MAY-2025 09:58, Minimal criteria for Anterior infarct are no longer Present Confirmed by MD KALI, EZRA ([id number]) on 06/21/2025 4:38:31 PM GEMUSE 06/21/2025 10:4 3 AM EDT 06/21/2025 4:38 PM EDT Ezra Mane MD ECG ORDERABLES Final Result GEMUSE * (ABNORMAL) Urinalysis with reflex microscopic and culture (06/21/2025 10:15 AM EDT) [facility] Specific [place] Urine 1.008 1.003 - 1.030 LAB URINALYSIS - AUTOMATED METHOD 06/21/2025 10:35 AM [facility] pH, Urine 7.5 5.0 - 8.0 pH LAB URINALYSIS - AUTOMATED METHOD 06/21/2025 10:35 AM [facility] Leukocytes, Urine Negative Negative LAB URINALYSIS - AUTOMATED METHOD 06/21/2025 10:35 AM [facility] Nitrite, Urine Negative Negative LAB URINALYSIS - AUTOMATED METHOD 06/21/2025 10:35 AM [facility] Protein, Urine 30(A) <=Trace mg/dL LAB URINALYSIS - AUTOMATED METHOD 06/21/2025 10:35 AM [facility] Glucose, Urine Negative Negative mg/dL LAB URINALYSIS - AUTOMATED METHOD 06/21/2025 10:35 AM [facility] Ketones, Urine Negative Negative mg/dL LAB URINALYSIS - AUTOMATED METHOD 06/21/2025 10:35 AM [facility] Urobilinogen, Urine 1.0 0.2 - 1.0 mg/dL LAB URINALYSIS - AUTOMATED METHOD 06/21/2025 10:35 AM [facility] Bilirubin, Urine Negative Negative LAB URINALYSIS - AUTOMATED METHOD 06/21/2025 10:35 AM [facility] Blood, Urine Trace(A) Negative LAB URINALYSIS - AUTOMATED METHOD 06/21/2025 10:35 AM [facility] RBC, Urine 1.8 0 - 4 /HPF LAB URINALYSIS - AUTOMATED METHOD 06/21/2025 10:35 AM [facility] WBC, Urine 0.3 0 - 4 /HPF LAB URINALYSIS - AUTOMATED METHOD 06/21/2025 10:35 AM [facility] Squamous Epithelial, Urine 46 0 - 60 /LPF LAB URINALYSIS - AUTOMATED METHOD 06/21/2025 10:35 AM [facility] Bacteria, Urine Negative Negative /HPF LAB URINALYSIS - AUTOMATED METHOD 06/21/2025 10:35 AM [facility] Hyaline Casts, Urine 1.2 0 - 3 /LPF LAB URINALYSIS - AUTOMATED METHOD 06/21/2025 10:35 AM [facility] Urine Urine specimen obtained by clean catch procedure / Unknown Non-blood Collection / Unknown 06/21/2025 10:15 AM EDT 06/21/2025 10:21 AM EDT us Ezra Mane MD LAB URINE ORDERABLES Final Resul t [facility] [address] [place] [address], [place] [phone] * Moss urine culture tube (06/21/2025 10:15 AM EDT) [facility] Extra Tube Hold for add-ons. 06/21/2025 12:01 PM EDT [facility] Comment:Auto resulted. Urine Urine specimen obtained by clean catch procedure / Unknown Non-blood Collection / Unknown 06/21/2025 10:15 AM EDT 06/21/2025 10:21 AM EDT us Ezra Mane MD LAB URINE ORDERABLES Final Resul t Performing Organization Address [facility] Co de Phone Number [facility] [address] [place] [address], [place] [phone] * Troponin I high sensitivity (06/21/2025 10:06 AM EDT) [facility] High Sensitivity Troponin I 18 <=54 ng/L LAB CHEMISTRY METHOD 06/21/2025 10:55 AM EDT [facility] Blood Venous blood specimen / Unknown Venipuncture / Unknown 06/21/2025 10:06 AM EDT 06/21/2025 10:20 AM EDT Narrative [facility] - 06/21/2025 10:55 AM EDT High levels of biotin in samples may falsely decrease hsTroponin values. Use caution when interpreting hsTroponin results in patients taking biotin who exhibit renal impairment (eGFR <60) or in patients taking more than 20 mg/day of biotin. us Ezra Mane MD LAB BLOOD ORDERABLES Final Resul t Performing Organization Address [facility] Co de Phone Number [facility] [address] [place] [address], [place] [phone] * (ABNORMAL) CBC auto differential (06/21/2025 10:06 AM EDT) [facility] WBC 10.6 4.8 - 10.8 K/mcL LAB HEMETOLOGY METHOD 06/21/2025 10:27 AM [facility] RBC 4.20 3.80 - 4.80 M/mcL LAB HEMETOLOGY METHOD 06/21/2025 10:27 AM [facility] Hemoglobin 12.7 11.5 - 16.0 g/dL LAB HEMETOLOGY METHOD 06/21/2025 10:27 AM [facility] Hematocrit 38.2 35.0 - 47.0 % LAB HEMETOLOGY METHOD 06/21/2025 10:27 AM [facility] MCV 91.8 79.0 - 98.0 FL LAB HEMETOLOGY METHOD 06/21/2025 10:27 AM [facility] MCH 30.5 27.0 - 32.0 pcg LAB HEMETOLOGY METHOD 06/21/2025 10:27 AM [facility] MCHC 33.2 32.0 - 37.0 g/dL LAB HEMETOLOGY METHOD 06/21/2025 10:27 AM [facility] RDW 12.8 11.0 - 15.0 % LAB HEMETOLOGY METHOD 06/21/2025 10:27 AM [facility] Platelets 359 130 - 400 K/mcL LAB HEMETOLOGY METHOD 06/21/2025 10:27 AM [facility] MPV 8.4 7.0 - 11.0 FL LAB HEMETOLOGY METHOD 06/21/2025 10:27 AM [facility] NRBC 0.0 <1.0 % LAB HEMETOLOGY METHOD 06/21/2025 10:27 AM [facility] NRBC Absolute 0.00 <0.10 K/mcL LAB HEMETOLOGY METHOD 06/21/2025 10:27 AM [facility] Neutrophils Relative 73.2 % LAB HEMETOLOGY METHOD 06/21/2025 10:27 AM [facility] Lymphocytes Relative 15.4 % LAB HEMETOLOGY METHOD 06/21/2025 10:27 AM [facility] Monocytes Relative 6.2 % LAB HEMETOLOGY METHOD 06/21/2025 10:27 AM [facility] Eosinophils Relative 4.1 % LAB HEMETOLOGY METHOD 06/21/2025 10:27 AM [facility] Basophils Relative 0.7 % LAB HEMETOLOGY METHOD 06/21/2025 10:27 AM [facility] Immature Granulocytes Relative 0.4 % LAB HEMETOLOGY METHOD 06/21/2025 10:27 AM [facility] Neutrophils Absolute 7.78(H) 1.50 - 7.00 K/mcL LAB HEMETOLOGY METHOD 06/21/2025 10:27 AM [facility] Lymphocytes Absolute 1.64 1.00 - 5.00 K/mcL LAB HEMETOLOGY METHOD 06/21/2025 10:27 AM [facility] Monocytes Absolute 0.66 0.20 - 1.00 K/mcL LAB HEMETOLOGY METHOD 06/21/2025 10:27 AM [facility] Eosinophils Absolute 0.44 0.00 - 0.50 K/mcL LAB HEMETOLOGY METHOD 06/21/2025 10:27 AM [facility] Basophils Absolute 0.07 0.00 - 0.20 K/mcL LAB HEMETOLOGY METHOD 06/21/2025 10:27 AM [facility] Immature Granulocytes Absolute 0.04(H) 0.00 - 0.03 K/mcL LAB HEMETOLOGY METHOD 06/21/2025 10:27 AM [facility] Blood Venous blood specimen / Unknown Venipuncture / Unknown 06/21/2025 10:06 AM EDT 06/21/2025 10:20 AM EDT Ezra Mane MD LAB BLOOD ORDERABLES Final Resul t [facility] [address] [place] [address], [place] [phone] * Magnesium (06/21/2025 10:06 AM EDT) Pathologist [facility] Magnesium 1.9 1.9 - 2.6 mg/dL LAB CHEMISTRY METHOD 06/21/2025 10:52 AM EDT [facility] Blood Venous blood specimen / Unknown Venipuncture / Unknown 06/21/2025 10:06 AM EDT 06/21/2025 10:20 AM EDT Ezra Mane MD LAB BLOOD ORDERABLES Final Resul t Performing Organization Address City/[facility]/ZIP Co de Phone Number [facility] [address] [place] [address], [place] [phone] * (ABNORMAL) Basic metabolic panel (06/21/2025 10:06 AM EDT) Pathologist [facility] Sodium 132(L) 133 - 145 mmol/L LAB CHEMISTRY METHOD 06/21/2025 10:52 AM EDT [facility] Potassium 4.0 3.5 - 5.5 mmol/L LAB CHEMISTRY METHOD 06/21/2025 10:52 AM EDT [facility] Chloride 97 96 - 110 mmol/L LAB CHEMISTRY METHOD 06/21/2025 10:52 AM EDT [facility] CO2 28 21 - 32 mmol/L LAB CHEMISTRY METHOD 06/21/2025 10:52 AM EDT [facility] Anion Gap 7 3 - 11 LAB CHEMISTRY METHOD 06/21/2025 10:52 AM EDT [facility] Glucose 123(H) 70 - 100 mg/dL LAB CHEMISTRY METHOD 06/21/2025 10:52 AM EDT [facility] BUN 9 5 - 25 mg/dL LAB CHEMISTRY METHOD 06/21/2025 10:52 AM EDT [facility] Creatinine 0.71 0.50 - 1.10 mg/dL LAB CHEMISTRY METHOD 06/21/2025 10:52 AM EDT [facility] eGFR 83 >=60 mL/min/1. 73m2 LAB CHEMISTRY METHOD 06/21/2025 10:52 AM EDT [facility] Comment:Calculation based on the Chronic Kidney Disease Epidemiology Collaboration (CKD-EPI) equation refit without adjustment for race. BUN/Creatinine Ratio 12.7 LAB CHEMISTRY METHOD 06/21/2025 10:52 AM EDT [facility] Calcium 8.9 8.5 - 10.5 mg/dL LAB CHEMISTRY METHOD 06/21/2025 10:52 AM EDT [facility] Blood Venous blood specimen / Unknown Venipuncture / Unknown 06/21/2025 10:06 AM EDT 06/21/2025 10:20 AM EDT Ezra Mane MD LAB BLOOD ORDERABLES Final Resul t [facility] [address] [place] [address], * (ABNORMAL) [id number], RSV, Influenza A and B qualitative RT-PCR (06/21/2025 10:04 AM EDT) Influenza A PCR Not Detected Not Detected LAB MICROBIOLOGY METHOD 06/21/2025 11:02 AM EDT [facility] Influenza B PCR Not Detected Not Detected LAB MICROBIOLOGY METHOD 06/21/2025 11:02 AM EDT [facility] RSV PCR Not Detected Not Detected LAB MICROBIOLOGY METHOD 06/21/2025 11:02 AM EDT [facility] SARS COV-2 Detected(A) Not Detected LAB MICROBIOLOGY METHOD 06/21/2025 11:02 AM EDT [facility] Swab Both anterior nares / Unknown Non-blood Collection / Unknown 06/21/2025 10:04 AM EDT 06/21/2025 10:20 AM EDT Narrative [facility] - 06/21/2025 11:02 AM EDT Disclaimer: Testing was performed using the mii GeneXpert Xpress SARS-CoV-2 _Flu_RSV PLUS PCR assay. The manner in which this information is used to guide patient care is the responsibility of the healthcare provider. Results should be correlated with the clinical history, epidemiological data, and other data available to the clinician evaluating the patient. Negative results do not preclude infection. This test has been authorized by the FDA under an Emergency Use Authorization (EUA). This test is only authorized for the duration of time the declaration that circumstances exist justifying the authorization of the emergency use of in vitro diagnostic tests for detection of SARS-CoV-2 virus and/or diagnosis of COVID-19 infection under section 564 (b) (1) of the Act, 21 U.S.C 360bbb-3 (b) (1), unless the authorization is terminated or revoked sooner. Reference Range: Not Detected Fact sheet for Healthcare providers can be found at https://www.fda.gov/media/144450/download. Fact sheet for Healthcare patients can be found at https://www.fda.gov/media/651660/download. Ezra Mane MD LAB MICROBIOLOGY - GENERAL ORDER PAOLO Final Result [facility] [address] [place] [address], * MENA DEXA AXIAL SKELETON (03/16/2022 11:36 AM EDT) Anatomical Region Laterality Modality Mammography 03/16/2022 10:3 2 AM EDT Narrative 03/16/2022 11:36 AM EDT [facility] Diagnostic Imaging Department [address] [place] [address] Patient: JACKIEQUETA SILVERIO /Age/Sex: 1940 - 81 - F Unit#: [id number] Location/Status: SPDIMAM/REG CLI Mnemonic/Ordering Site: MAMDEXAAX/SPMAM Ordering Physician: DEREK CHAVEZ MD Mena Dexa Axial Skeleton - 03/16/221120 HISTORY: The patient is an 81-year-old postmenopausal female smoker on chronic glucocorticoid therapy, with clinical concern for metabolic bone disease. FINDINGS: Dual energy x-ray absorptiometry of the lumbar spine and femurs is performed. The mean bone mineral density at L3-4 is 1.175 gm/cm2 which is 98% of that of young normals and 124% of that of age matched controls. This yields a T- score of -0.2 and a Z-score of 1.9 and there is therefore no evidence of osteoporosis or osteopenia here. The mean bone mineral density of the femurs bilaterally is 0.744 gm/cm2 which is 74% of that of young normals and 103% of that of age matched controls. This yields a T-score of -2.1 and a Z-score of 0.2 which is diagnostic of osteopenia. However, the T-score of the right femoral neck is -2.6 and that of the left femoral neck is -2.6 which is diagnostic of osteoporosis. IMPRESSION: 1. Osteoporosis. There has been a decrease of 5.0% in bone mineral density in the lumbar spine since the prior examination of 12/17/2010. There has been a decrease of 15.5% in bone mineral density in the right femur and a decrease of 25.8% in bone mineral density in the left femur. 2. FRAX analysis yields a 10-year probability of major osteoporotic fracture of 22.1% and a 10-year probability of hip fracture of 12.5%. Code 45417 Dictating Physician: MANOLO ORTIZ MD Electronically Signed by: MANOLO ORTIZ MD Dic Date/Time: 03/16/22 1134 Sign date/Time: 03/16/22 1136 Procedure Note Manolo Ortiz MD - 09/29/2022 [facility] Diagnostic Imaging Department [address] [place] [address] Patient: QUETA MEJIA./Age/Sex: 1940 - 81 - F Unit#: [id number] [facility] Ordering Physician: DEREK CHAVEZ MD [facility] Dexa Axial Skeleton - 03/16/221120 HISTORY: The patient is an 81-year-old postmenopausal female smoker onchronic glucocorticoid therapy, with clinical concern for metabolic bonedisease. FINDINGS: Dual energy x-ray absorptiometry of the lumbar spine and femursis performed. The mean bone mineral density at L3-4 is 1.175 gm/cm2 which is98% of that of young normals and 124% of that of age matched controls. Thisyields a T- score of -0.2 and a Z-score of 1.9 and there is therefore no evidence of osteoporosis or osteopenia here. The mean bone mineral density of the femurs bilaterally is 0.744 gm/nv2afbti is 74% of that of young normals and 103% of that of age matched controls.This yields a T-score of -2.1 and a Z-score of 0.2 which is diagnostic ofosteopenia. However, the T-score of the right femoral neck is -2.6 and that of theleft femoral neck is -2.6 which is diagnostic of osteoporosis. IMPRESSION: 1. Osteoporosis. There has been a decrease of 5.0% in bone mineraldensity in the lumbar spine since the prior examination of 12/17/2010. There has jenna decrease of 15.5% in bone mineral density in the right femur and adecrease of 25.8% in bone mineral density in the left femur. 2. FRAX analysis yields a 10-year probability of major osteoporoticfracture of 22.1% and a 10-year probability of hip fracture of 12.5%. Code [id number] Dictating Physician: MANOLO ORTIZ MD Electronically Signed by: MANOLO ORTIZ MD Dic Date/Time: 03/16/22 1134 Sign date/Time: 03/16/22 1136 Derek Chavez MD IMG BI PROCEDURES Final Resu lt from Last 3 Months or Most Recently Relevant to Health Maintenance Insurance [employer] MEDICARE [place]ICAID - [place] Care Teams Electrical Engineering Professor Relationship Specialty Start Date End Date Stephanie Justice MD [address] [address] PCP - General Internal Medicine 08/24/13
--- OUTSIDE RECORDS SUMMARY | 2025-09-16 23:36 | XMS_ITS | Encounter Summary ---
Author Organization [facility] Address [address] [place] [address] Care Team Providers Care Sports Marketing Specialist Name Role Phone Stephanie Justice MD Primary Care Provider [phone] Encounter Details Date Type Department Care Team (Late Contact Info) Description 08/01/2025 Results Follow-Up Vascular Surgery - [place] [address] [facility] [address] [place] [address] Beatriz Hernandez PA [address] [facility] [address] [place] [address] Social History Tobacco Use Types Packs/Day Years [...] PM EST documented as of this encounter Plan of Treatment Upcoming Encounters Date Type Department Care Team (Late Contact Info) Description 09/18/2025 10:40 AM EST Office Visit [facility] - [facility] [address] [facility] [address] [place] [address] Hayley Pope, DESEAN [address] [place] [address] [address] [place] [address] 10/11/2025 2:00 PM EST Office Visit Vascular Surgery - [place] [address] [place] [address] Cecilia Farley PA [address] [place] [phone] 11/06/2025 10:30 AM EST Office Visit Pulmonology - [place] [address] [place] [address] Paula Chavez MD 230 [place] [phone] 01/30/2026 9:15 AM EDT Ancillary Procedure [facility] - [facility] [address] [facility] [address] [place] [phone] 02/19/2026 10:30 AM EDT Office Visit Gastroenterology - [address] [facility] [address] [place] [address] Lashay Ortega PA [address] [place] [address] documented as of this encounter Visit Diagnoses Not on filedocumented in this encounter Care Teams Sports Marketing Specialist Relationship Specialty Start Date End Date Stephanie Justice MD [address] [place] [phone] PCP - General Internal Medicine 08/24/13 documented as of this encounter
--- OUTSIDE RECORDS SUMMARY | 2025-09-16 23:36 | XMS_ITS | Encounter Summary ---
Author Organization [facility] Address [address] [place] [address] Care Team Providers Care Sweat Band Sewer Name Role Phone Stephanie Justice MD Primary Care Provider Encounter Details Date Type Department Care Team (Late st Contact Info) Description 08/18/2025 Results Follow-Up Gastroenterology - [address] [address] Lashay Ortega PA [address] [address] Social History Tobacco Use Types Packs/Day Years [...] PM EST documented as of this encounter Progress Notes * Florecita Weston - 09/03/2025 9:00 AM EST Pts daughter is calling back. 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 Chavez, again she does have a inflammation of the esophagus secondary toacid reflux. I will be more than happy to order endoscopy. And also mild fatty liver disease. Pt should be on low-fat, low-carb diet. Please let me know about endoscopy thank you so much documented in this encounter Plan of Treatment Upcoming Encounters Date Type Department Care Team (Late st Contact Info) Description 09/18/2025 10:40 AM EST Office Visit [facility]iology [facility] [address] [facility] [address] [place] [address] Hayley Pope, DESEAN [address] [place] [address] [address] [place] [address] 10/11/2025 2:00 PM EST Office Visit Vascular Surgery - [place] [address] [place] [address] Cecilia Farley PA [address] [place] [phone] 11/06/2025 10:30 AM EST Office Visit Pulmonology - [place] [address] [facility] [address] [place] [phone] Paula Chavez MD [address] [place] [phone] 01/30/2026 9:15 AM EDT Ancillary Procedure [facility] [address] [place] [address] 02/19/2026 10:30 AM EDT Office Visit Gastroenterology - 299 [address] [facility] [address] [place] [phone] Lashay Ortega PA [address] [facility] [address] [place] [address] documented as of this encounter Visit Diagnoses Not on filedocumented in this encounter Care Teams Sweat Band Sewer Relationship Specialty Start Date End Date Stephanie Justice MD 175 [facility] [address] [place] [phone] PCP - General Internal Medicine 08/24/13 documented as of this encounter
--- OUTSIDE RECORDS SUMMARY | 2025-09-16 23:36 | XMS_ITS | Encounter Summary ---
Author Organization [facility] Address [address] [place] [address] Care Team Providers Care Desktop Operator Name Role Phone Stephanie Justice MD Primary Care Provider [phone] Encounter Details Date Type Department Care Team (Late Contact Info) Description 09/09/2025 Results Follow-Up [facility] - [facility] [address] [phone] Hayley Pope NP [address] [place] [address] [place] [phone] Social History Tobacco Use Types Packs/Day Years [...] Description 09/18/2025 10:40 AM EST Office Visit [facility] - [facility] 154 300 [facility] [address] [place] [address] Hayley Pope NP [address] [place] [address] [address] [place] [address] 10/11/2025 2:00 PM EST Office Visit Vascular Surgery - [place] [address] [place] [address] Cecilia Farley PA [address] [place] [address] 11/06/2025 10:30 AM EST Office Visit Pulmonology - [place] [address] [place] [address] Paula Chavez MD [address] [place] [phone] 01/30/2026 9:15 AM EDT Ancillary Procedure [facility] - [address] [place] [address] 02/19/2026 10:30 AM EDT Office Visit Gastroenterology - 299 [facility] [address] [facility] [address] [place] [address] Lashay Ortega PA [address] [place] [address] documented as of this encounter Visit Diagnoses Not on filedocumented in this encounter Care Teams Desktop Operator Relationship Specialty Start Date End Date Stephanie Justice MD [address] [facility] [address] [place] [address] PCP - General Internal Medicine 08/24/13 documented as of this encounter
== END 2025-09-16 15:20 | disposition home or self-care (01) ==
LOC: HO.HPHYS 14:30
PROVIDERS: PCP Internal Medicine; Visit Provider Physician Assistant
DX: M54.16 Radiculopathy, lumbar region (principal); M47.816 Spondylosis without myelopathy or radiculopathy, lumbar region
CPT/HCPCS: 99213

== ENCOUNTER → 2025-09-16 14:29 | Outpatient (BNVA) | payer OTHER, SELFPAY | PROVIDERS: PCP Internal Medicine; Visit Provider Physician Assistant | DX: M54.16 Radiculopathy, lumbar region (principal); M47.816 Spondylosis without myelopathy or radiculopathy, lumbar region | CPT/HCPCS: 99212 ==